=== PATIENT | male | born 1945 | race Caucasian/White ===

== ENCOUNTER 2023-05-22 18:29 | Emergency (ER) | payer MEDICARE, OTHER, SELFPAY ==
[2023-05-22 18:55] VITALS: BP 142/78; PULSE 78; O2SAT 99; BMI 22.5
[2023-05-22 19:14] VITALS: BP 128/55; PULSE 68; RESP 20; TEMP 36.7; O2SAT 96
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
== END 2023-05-22 20:49 | disposition skilled nursing facility (03) ==
PROVIDERS: Emergency Provider Internal Medicine; PCP Internal Medicine
DX: S61.412A Laceration without foreign body of left hand, initial encounter (principal); W20.8XXA Other cause of strike by thrown, projected or falling object, initial encounter; Y93.9 Activity, unspecified; Y92.129 Unspecified place in nursing home as the place of occurrence of the external cause; Y99.9 Unspecified external cause status
CPT/HCPCS: 99283

== ENCOUNTER 2023-05-24 12:21 | Emergency (ER) | payer MEDICARE, OTHER, SELFPAY ==
--- NOTE | ~2023-05-24 | XR_ITS ---
EXAMINATION: XR CHEST CLINICAL INFORMATION: Pain COMPARISON: None available. TECHNIQUE: Frontal view of the chest was obtained. FINDINGS: Chin obscures the apices. Heart and mediastinum within normal. Aortic calcifications identified. Patchy increased markings identified bilateral lung bhandari. No air bronchograms, vascular congestion. Minimal left costophrenic angle blunting. Bony structures are remarkable for degenerative change. Calcifications left axilla may be vascular. XR/XR chest 1V IMPRESSION: Patchy increased markings bilaterally. Bilateral multifocal pneumonias and tiny left effusion not excluded. Depending on the clinical scenario, CT may be indicated.
--- NOTE | ~2023-05-24 | CT_ITS ---
CT HEAD WITHOUT CONTRAST CLINICAL INFORMATION: Mental status changes. COMPARISON: Brain MRI 06/18/2022. TECHNIQUE: Contiguous axial imaging was performed from the skull base to vertex without intravenous administration of contrast. This CT examination was performed using dose optimization techniques as appropriate, variously including the following: *Automated exposure control *Adjustment of mA and/or kV according to patient size (this includes techniques or standardized protocols for targeted exams where dose is matched to indication/reason for exam; i.e. extremities or head) *Use of iterative reconstruction technique FINDINGS: Moderate to severe lateral and third ventriculomegaly with an associated narrowed callosal angle that can be correlated for clinical signs of normal pressure hydrocephalus. Left retromastoid craniotomy for vascular loop decompression of the left trigeminal nerve with a Santi pledget seen along the cisternal segment of the left trigeminal nerve. There is global cerebral volume loss, there is moderate chronic microangiopathy, and there is atherosclerotic calcification throughout the intracranial arterial vasculature. There is no intracranial hemorrhage, extra-axial surface collection, midline shift, or other herniation pattern. [place] to white matter differentiation is diffusely maintained without evidence of an evolved acute territorial infarct. The basilar cisterns are preserved. No significant soft tissue abnormality. No acute osseous abnormality. The paranasal sinuses and the mastoid air cells are well aerated. CT/CT head/brain wo IV con IMPRESSION: - Moderate to severe lateral and third ventriculomegaly with an associated narrowed callosal angle that can be correlated for clinical signs of normal pressure hydrocephalus. - There is global cerebral volume loss, there is moderate chronic microangiopathy, and there is atherosclerotic calcification throughout the intracranial arterial vasculature. - Left retromastoid craniotomy for vascular loop decompression of the left trigeminal nerve with a Santi pledget seen along the cisternal segment of the left trigeminal nerve.
[2023-05-24 12:50] VITALS: BP 125/59; PULSE 69; O2SAT 96
[2023-05-24 13:05] VITALS: BMI 19.7
[2023-05-24 13:11] VITALS: BP 125/52; PULSE 60; RESP 16; TEMP 36.7; O2SAT 96
--- NOTE | 2023-05-24 13:13 | ED_ITS ---
HPI - General Adult General Chief complaint: General Medical Stated complaint: AMS Time Seen by Provider: 05/24/23 13:03 Source: EMS Mode of arrival: EMS History of Present Illness HPI narrative: This is 77 years old male sent from a nursing facility for ?mental status changes patient denies any chest pain shortness of breath abdominal pain headache any complain. No reported fever no reported vomiting. Patient is coming from [facility] ([facility]) Onset (ago): day(s) (1) Radiation: non-radiation Severity: mild Pain Consistency: constant Relieving factors: none Related Data Allergies Allergy/AdvReac Type Severity Reaction Status Date / Time ceftriaxone [From Rocephin] AdvReac Unknown Verified 05/24/23 13:10 diphenhydramine AdvReac Unknown Verified 05/24/23 13:10 [From Benadryl] Review of Systems 2 Cardiovascular: Cardiovascular: Reports no additional cardiovascular complaints Gastrointestinal: Gastrointestinal: Reports no additional gastrointestinal complaints Neurologic: Reports system reviewed and no additional complaints, except as documented [facility] Past Medical History [facility] Narrative: History of high blood pressure, hypercholesterolemia Social History Social History Advance Directives: Yes Advance Directives Information Provided: Yes Advance Directives on File: No Physical Exam ED Vital Signs: Vital Signs - 24 hr 05/24/23 13:11 05/24/23 15:45 Temperature 98.0 F 98.0 F Pulse Rate 60 62 Respiratory Rate 16 18 Blood Pressure 125/52 L 147/61 H Pulse Oximetry 96 97 Oxygen Delivery Method Room Air Room Air BMI result Body Mass Index 19.7 Const General: cooperative HENFL Head: Yes normal to inspection General nose exam: Normal external nose present Face and sinus: Yes normal facial exam Neck Neck: Yes normal visual inspection Chest Chest palpation & inspection: normal inspection of the chest Resp Effort & Inspection: normal respiratory effort Auscultation: clear to auscultation bilaterally Cardio Jugular venous distension: no JVD Rate: regular rate Rhythm: regular rhythm GI Inspection: Yes normal to inspection General: Yes no CVA tenderness Back/Spine/Pelvis Back: no CVA tenderness Skin General skin exam: no rashes or lesions noted Lesions: no lesions Rashes: no rashes Neuro Other: He is oriented to place, he can tell me the month, he knows the president, Extrem General: Yes normal to inspection Course Reevaluation(s) Reevaluation #1: Patient remained hemodynamically stable and neurologically intact. Vital signs stable awake alert oriented to place and time. ct showed dilated ventricle likely chronic ? NPH Time: 16:00 Reevaluation #2: Case signed out to Dr Escobedo ,I paged neurologist waiting for call back to discuss ct (I am off shift now) Time: 16:10 Medical Decision Making Differential Diagnosis Differential Diagnoses: The differential diagnosis associated with the presentation includes ? CVa ? uti Admission/Observation Consideration of admission/observation: Escalation of care including admission/observation considered Lab Data MDM Lab Attestation statement: I reviewed the patient's lab results. 05/24/23 14:02 05/24/23 14:02 Labs: Lab Results 05/24/23 05/24/23 Range/Units 14:02 14:52 WBC 7.5 (4.8-10.8) X10*3/uL RBC 3.72 L (4.60-5.80) X10*6/uL Hgb 11.0 L (14.0-18.0) g/dl Hct 33.2 L (42.0-52.0) % MCV 89.2 (80.0-98.0) fL MCH 29.6 (27.0-33.0) pg MCHC 33.1 (31.0-36.0) g/dl RDW 14.8 (11.0-16.0) % Plt Count 195 (160-400) X10*3/uL MPV 9.4 (9.4-12.4) fL Immature Gran % (Auto) 0.3 (0.0-0.4) % Neut % (Auto) 77.8 H (45-73) % Lymph % (Auto) 13.9 L (20-40) % [place] % (Auto) 6.8 (2-11) % Eos % (Auto) 0.9 (0-4) % Baso % (Auto) 0.3 (0-2) % Lymph # (Auto) 1.0 L (1.2-4.9) X10*3/uL [place] # (Auto) 0.5 (0.1-1.2) X10*3/uL Eos # (Auto) 0.1 (0.0-0.4) X10*3/uL Baso # (Auto) 0.0 (0.0-0.2) X10*3/uL Abs Immat Gran (auto) 0.02 (0.00-0.03) X10*3/uL Absolute Neuts (auto) 5.8 (2.0-8.3) x10*3/uL Absolute Nucleated RBC 0.000 (0.0-0.012) X10*3/uL Nucleated RBC % (auto) 0.0 (0.0-0.2) /100WBC Sodium 140 (135-145) mmol/L Potassium 4.1 (3.3-5.1) mmol/L Chloride 106 (96-108) mmol/L Carbon Dioxide 25 (22-29) mmol/L Anion Gap 13 (12-20) BUN 22 H (9-16) mg/dL Creatinine 0.82 (0.5-1.4) mg/dL Estim Creat Clear Calc 62.4 Estimated GFR > 60 Random Glucose 92 (60-115) mg/dL Calcium 9.0 (8.4-10.2) mg/dL Total Bilirubin 0.5 (0.0-1.0) mg/dL AST 19 (5-37) U/L ALT 15 (0-40) U/L Alkaline Phosphatase 63 (39-117) U/L Troponin I High Sens < 2.7 (<3.5-35.0) ng/L Total Protein 6.8 (6.5-8.0) g/dL Albumin 3.6 (3.5-5.0) g/dL Urine Color Dark Yellow Urine Appearance Clear Urine pH 6.0 (5.0-9.0) Ur Specific [place] 1.025 (1.005-1.025) Urine Protein Trace (Neg-Trace) mg/dL Urine Glucose (UA) Negative (Negative) mg/dL Urine Ketones Trace (Negative) mg/dL Urine Blood Negative (Negative) Urine Nitrite Negative (Negative) Ur Leukocyte Esterase Negative (Negative) Urine RBC 0-2 (0-2) /HPF Urine WBC 0-5 (0-5) /HPF Ur Squamous Epith Cells 0-2 (0-2) /HPF Urine Bacteria None Seen (None Seen) Hyaline Casts 0-2 (0-2) /LPF Discharge Plan Discharge Clinical Impression: Altered mental status Patient Disposition: Still a Patient
[2023-05-24 14:05] LABS: MANUAL DIFF FLAG NO
[2023-05-24 14:07] LABS: Basophils Percent Auto 0.3 % (0-2); Eosinophils Absolute Auto 0.1 X10*3/uL (0.0-0.4); Eosinophils Percent Auto 0.9 % (0-4); Hematocrit 33.2 % (42.0-52.0); Imm Gran Abs Auto 0.02 X10*3/uL (0.00-0.03); Imm Gran Pct Auto 0.3 % (0.0-0.4); Lymphocytes Percent Auto 13.9 % (20-40); Mean Corpuscular HGB Conc 33.1 g/dl (31.0-36.0); Mean Corpuscular Hemoglobin 29.6 pg (27.0-33.0); Mean Corpuscular Volume 89.2 fL (80.0-98.0); Mean Platelet Volume 9.4 fL (9.4-12.4); Monocytes Absolute Auto 0.5 X10*3/uL (0.1-1.2); Monocytes Percent Auto 6.8 % (2-11); Neutrophils Absolute Auto 5.8 x10*3/uL (2.0-8.3); Neutrophils Percent Auto 77.8 % (45-73); Platelet Count 195 X10*3/uL (160-400); Red Blood Count 3.72 X10*6/uL (4.60-5.80); Red Cell Distribution Width 14.8 % (11.0-16.0); White Blood Count 7.5 X10*3/uL (4.8-10.8)
[2023-05-24 14:22] LABS: Alanine Aminotransferase 15 U/L (0-40); Albumin Level 3.6 g/dL (3.5-5.0); Alkaline Phosphatase 63 U/L (39-117); Anion Gap 13 (12-20); Aspartate Amino Transferase 19 U/L (5-37); Bilirubin Total 0.5 mg/dL (0.0-1.0); Blood Urea Nitrogen 22 mg/dL (9-16); Carbon Dioxide 25 mmol/L (22-29); Chloride 106 mmol/L (96-108); Creatinine Clr Calc Pharmacy 62.4; Estimated Glomerular Filt Rate > 60; Glucose Random 92 mg/dL (60-115); Potassium 4.1 mmol/L (3.3-5.1); Sodium 140 mmol/L (135-145); Total Protein 6.8 g/dL (6.5-8.0)
[2023-05-24 14:29] LABS: Troponin-I High Sensitivity < 2.7 ng/L (<3.5-35.0)
[2023-05-24 14:58] LABS: Appearance Urine Clear; Color Urine Dark Yellow; Glucose Urine UA Negative (Negative); Leukocyte Esterase Urine Negative (Negative); Nitrite Urine Negative (Negative); Specific Gravity - Urine 1.025 (1.005-1.025); Urine Blood Negative (Negative); Urine Ketones Trace mg/dL (Negative); Urine Protein Trace mg/dL (Neg-Trace)
[2023-05-24 15:00] LABS: Bacteria Urine None Seen (None Seen); Hyaline Casts Urine 0-2 /LPF (0-2); RBC Urine 0-2 /HPF (0-2); Squamous Epithelial Cell Urine 0-2 /HPF (0-2); WBC Urine 0-5 /HPF (0-5)
[2023-05-24 15:45] VITALS: BP 147/61; PULSE 62; RESP 18; TEMP 36.7; O2SAT 97
--- NOTE | 2023-05-24 17:10 | PHA.MEDREC ---
Pharmacy Consult ? Medication Reconciliation Pharmacy has completed the medication reconciliation. Patient came from [facility] with med list. Shayy Tse, WagnerD
== END 2023-05-24 20:00 | disposition home or self-care (01) ==
PROVIDERS: Emergency Medicine; Emergency Provider Emergency Medicine
DX: R41.82 Altered mental status, unspecified (principal); G93.89 Other specified disorders of brain
CPT/HCPCS: 36415; 70450; 71045; 80053; 81001; 84484; 85025; 99283; 99284

== ENCOUNTER 2023-06-10 16:51 | Inpatient (IN) | payer MEDICARE, OTHER, SELFPAY ==
[2023-06-10] VITALS (8 sets, daily range): BP systolic 108–141; BP diastolic 41–64; PULSE 69–100; RESP 15–22; TEMP 36.6–37.4; O2SAT 95–100; BMI 19.7
--- NOTE | 2023-06-10 | ECG_ITS ---
Test Reason : AMS Blood Pressure : / mmHG Vent. Rate : 093 BPM Atrial Rate : 093 BPM P-R Int : 144 ms QRS Dur : 084 ms QT Int : 380 ms P-R-T Axes : 070 -21 -03 degrees QTc Int : 472 ms Sinus rhythm with Premature supraventricular complexes Nonspecific ST and T wave abnormality Abnormal ECG No previous ECGs available Referred By: Generic ED Physician Electronically Signed By:Bubba Nobles
--- NOTE | ~2023-06-10 | CT_ITS ---
EXAMINATION: CT head/brain wo IV con CLINICAL INFORMATION: Reason for Exam altered mental status COMPARISON: CT head 05/24/2023 TECHNIQUE: Contiguous axial imaging was performed from the skull base to vertex without intravenous contrast. Sagittal and coronal reformatted images were obtained. This CT examination was performed using dose optimization techniques as appropriate, variously including the following: * Automated exposure control * Adjustment of mA and/or kV according to patient size (this includes techniques or standardized protocols for targeted exams where dose is matched to indication/reason for exam; i.e. extremities or head) Use of iterative reconstruction technique DLP: 640.97 mGy-cm mGy-cm FINDINGS: There is no evidence of acute intracranial hemorrhage. No mass-effect or ventricular shift is noted. No acute, territorial loss of tao-white differentiation. Redemonstrated ventriculomegaly which is out of proportion to sulcal prominence with crowding of the sulci at the cerebral vertex in a narrowed callosal angle.Periventricular and subcortical white matter hypodensity is nonspecific but likely represents chronic microvascular ischemic change. Intracranial atherosclerotic calcification is noted. Prior left retromastoid craniotomy with pledget along the cisternal left trigeminal nerve. Scattered ethmoid air cell mucosal thickening. Soft tissue in the external auditory canals, likely cerumen. The mastoid air cells are clear. CT/CT head/brain wo IV con IMPRESSION: No acute intracranial hemorrhage or territorial loss of tao-white differentiation. Redemonstrated ventriculomegaly with findings suggestive of normal pressure hydrocephalus. Clinical correlation is recommended. Moderate chronic microvascular ischemic change.
--- NOTE | ~2023-06-10 | XR_ITS ---
EXAMINATION: XR CHEST CLINICAL INFORMATION: Hypoxia and shortness of breath. AMS. COMPARISON: Chest 05/24/2023 TECHNIQUE: Frontal view of the chest was obtained. FINDINGS: The lungs are expanded with diffuse increased interstitial markings throughout both lungs likely chronic and similar to 05/24/2023. There is mild haziness in the left lung base likely chronic scarring or pleural thickening. Heart size and progress clarities appears normal. No gross bony abnormality. Flexed chin limits evaluation of superior mediastinum. XR/XR chest 1V IMPRESSION: Bilateral increased interstitial markings likely chronic. There is left basilar patchy opacity question chronic atelectasis with pleural thickening. Consolidation cannot be excluded.
[2023-06-10 17:07] LABS: Glucose, Whole Blood 120 mg/dL (60-115)
[2023-06-10 17:25] LABS: MANUAL DIFF FLAG NO
[2023-06-10 17:28] LABS: Appearance Urine Clear; Basophils Percent Auto 0.1 % (0-2); Color Urine Dark Yellow; Eosinophils Percent Auto 0.2 % (0-4); Glucose Urine UA Negative (Negative); Hematocrit 31.4 % (42.0-52.0); Hemoglobin 10.3 g/dl (14.0-18.0); Imm Gran Abs Auto 0.08 X10*3/uL (0.00-0.03); Imm Gran Pct Auto 0.7 % (0.0-0.4); Leukocyte Esterase Urine Trace (Negative); Lymphocytes Absolute Auto 0.8 X10*3/uL (1.2-4.9); Lymphocytes Percent Auto 6.7 % (20-40); Mean Corpuscular HGB Conc 32.8 g/dl (31.0-36.0); Mean Corpuscular Hemoglobin 29.9 pg (27.0-33.0); Mean Corpuscular Volume 91.3 fL (80.0-98.0); Mean Platelet Volume 10.5 fL (9.4-12.4); Monocytes Absolute Auto 0.5 X10*3/uL (0.1-1.2); Monocytes Percent Auto 4.2 % (2-11); Neutrophils Absolute Auto 10.3 x10*3/uL (2.0-8.3); Neutrophils Percent Auto 88.1 % (45-73); Nitrite Urine Negative (Negative); PH 5.5 (5.0-9.0); Platelet Count 195 X10*3/uL (160-400); Red Blood Count 3.44 X10*6/uL (4.60-5.80); Red Cell Distribution Width 15.4 % (11.0-16.0); Specific Gravity - Urine >= 1.030 (1.005-1.025); UMIC TRIGGER UACC YES; Urine Blood Negative (Negative); Urine Ketones Trace mg/dL (Negative); Urine Protein 30 (1+) mg/dL (Neg-Trace); White Blood Count 11.7 X10*3/uL (4.8-10.8)
[2023-06-10 17:43] LABS: Alanine Aminotransferase 34 U/L (0-40); Albumin Level 3.8 g/dL (3.5-5.0); Alkaline Phosphatase 64 U/L (39-117); Anion Gap 15 (12-20); Aspartate Amino Transferase 108 U/L (5-37); Bilirubin Total 0.5 mg/dL (0.0-1.0); Blood Urea Nitrogen 42 mg/dL (9-16); Calcium 10.5 mg/dL (8.4-10.2); Carbon Dioxide 29 mmol/L (22-29); Chloride 111 mmol/L (96-108); Creatinine Clr Calc Pharmacy 41.7; Estimated Glomerular Filt Rate > 60; Glucose Random 162 mg/dL (60-115); Potassium 4.2 mmol/L (3.3-5.1); Sodium 151 mmol/L (135-145); Total Protein 7.4 g/dL (6.5-8.0)
--- NOTE | 2023-06-10 17:45 | ED.GENADULT ---
HPI - General Adult General Chief complaint: Altered Mental Status Stated complaint: INCREASED AMS Time Seen by Provider: 06/10/23 16:53 Source: EMS and other Mode of arrival: EMS History of Present Illness HPI narrative: 77-year-old male with majority of history provided by the facility, EMS and prior documentation. This patient is brought in from [facility] after having been there for proximally 5 months for depression and initial concerns by the facility is that patient has had increased weakness and altered mental status that was further clarified by a Dr. Rico who stated that patient has had increasing inability to ambulate and seems to demonstrate signs of Parkinson's and unable to be seen by Neurology through [facility] until June 30. I do observed in the triage note that there were concerns regarding hallucination, patient is a [employer] from [facility] but the physician with whom I spoke does not feel patient is appropriate for return to [facility] Related Data Home Medications Medication Instructions Recorded Confirmed amlodipine 5 mg tablet 5 mg PO DAILY 05/24/23 06/10/23 clopidogrel 75 mg tablet 75 mg PO DAILY 05/24/23 06/10/23 cyanocobalamin (vitamin B-12) 500 1,000 mcg PO DAILY 05/24/23 06/10/23 mcg tablet ferrous gluconate 324 mg (38 mg 324 mg PO DAILY 05/24/23 06/10/23 iron) tablet multivitamin 1 tab PO DAILY 05/24/23 06/10/23 tamsulosin 0.4 mg capsule 0.4 mg PO BEDTIME 05/24/23 06/10/23 atorvastatin 80 mg tablet 80 mg PO DAILY 06/10/23 06/10/23 calcium carbonate 600 mg-vitamin 1 tab PO TID 06/10/23 06/10/23 D3 5 mcg (200 unit) tablet (Calcium 600 + D(3)) docusate sodium 100 mg tablet 100 mg PO BID PRN Constipation 06/10/23 06/10/23 lactulose 20 gram/30 mL oral 20 g PO BID 06/10/23 06/10/23 solution mirtazapine 7.5 mg tablet 7.5 mg PO BEDTIME 06/10/23 06/10/23 risperidone 0.5 mg tablet 0.5 mg PO BID 06/10/23 06/10/23 risperidone 1 mg tablet 1 mg PO BEDTIME 06/10/23 06/10/23 Allergies Allergy/AdvReac Type Severity Reaction Status Date / Time ceftriaxone [From Rocephin] AdvReac Unknown Verified 06/10/23 17:08 diphenhydramine AdvReac Unknown Verified 06/10/23 17:08 [From Benadryl] Review of Systems Review of Systems: Yes Unobtainable due to mental condition PMFSH Past Medical History Source: nursing notes reviewed Social History Social History Smoked in Last 30 Days: No Use of substances other than those prescribed or required for medical reasons: No Advance Directives: No Advance Directives Information Provided: Yes Physical Exam ED Vital Signs: Vital Signs - 24 hr 06/10/23 17:02 06/10/23 18:34 06/10/23 18:46 Temperature 97.8 F 98.4 F 99.3 F Pulse Rate 91 84 83 Respiratory Rate 16 18 22 H Blood Pressure 112/45 L 114/41 L 110/48 L Pulse Oximetry 95 96 95 Oxygen Delivery Method Room Air Room Air 06/10/23 20:02 Temperature Pulse Rate 79 Respiratory Rate 15 Blood Pressure Pulse Oximetry 98 Oxygen Delivery Method BMI result Body Mass Index 19.7 VITAL SIGNS: Reviewed. GENERAL: Cachectic, chronically ill, elderly in no acute distress. HEAD: Normocephalic/atraumatic EYES: PERRLA, EOMI EARS: Ext canals without abnormality NOSE: Nares patent bilateral OROPHARYNX: no oral lesions noted, posterior pharynx clear NECK: Supple, no adenopathy LUNGS: Normal breath sounds. No adventitious sounds or accessory muscle use. SpO2<95> CARDIOVASCULAR: Regular rate and rhythm without noted murmurs, no JVD or lower extremity edema. ABDOMEN: Soft, patient has adult diaper in place, discomfort elicited on palpation over lower pelvis/suprapubic area, non-distended with bowel sounds. MUSCULOSKELETAL: No tenderness, deformities, or effusions noted on gross inspection; bilateral anterior lower legs with significant bruising. EXTREMITIES: No cyanosis, clubbing or edema. SKIN: Inspection of the skin reveals no rashes, ulcerations, jaundice, pallor, or petechiae. NEUROLOGIC: Alert and oriented x 1. Strength and sensation to light touch were grossly intact x 4 but unable to ambulate. Medications Administered Discontinued Medications Generic Name Dose Route Start Last Admin Trade Name Freq PRN Reason Stop Dose Admin Fentanyl 25 mcg 06/10/23 19:46 06/10/23 20:01 Fentanyl Citrate/Pf 100 Mcg/2 Ml Vial IVPUSH 06/10/23 19:47 25 mcg ONCE ONE Administration Protocol Sodium Chloride 500 mls @ 999 mls/hr 06/10/23 18:00 06/10/23 19:15 Ns IV 06/10/23 18:30 Infused .Q31M ELSY Infusion Medical Decision Making Medical Decision Making MDM Narrative: 77-year-old male with history and clinical presentation of chronic normal pressure hydrocephalus on initial visit on 05/24/2023. At the time this was discussed with Neurology, Dr. Figueroa, who recommended that patient could be followed up in the outpatient setting. On discussion with the facility staff as well as the physician with whom I discussed the patient's case, this has not occurred, nor has patient been to [facility] for further evaluation or workup. It is unclear whether or not goals of care or plans for care for this patient have been discussed with his . I reviewed all investigations and there is a subtle leukocytosis without thrombocytopenia and a stable normocytic anemia. Chemistry indices do not demonstrate an ELI although there is noted increase in BUN suggesting a component of dehydration, patient also noted to have an elevated sodium as well as chloride. Urinalysis negative for UTI but again elevated specific gravity mildly suggestive of a component of dehydration. Viral testing negative for influenza/RSV/COVID. 1820: I have been informed by Dr. Rico who called here on behalf [facility] stating that he suspects that the patient is having parkinsonian symptoms, they have been unable to get the patient into a neurologist through the [facility] system, states that the who is the primary decision maker is aware that he can no longer walk and has not been eating or drinking. Dr. Rico wishes for the patient to be seen by Neurology and worked up further. Dr. Rico also states that this patient is not appropriate for the facility at this time. 1944: Nursing was able to have a lengthy discussion with the over the phone who states that patient is not been himself since he has been at [facility] at the beginning April. The states he has no psychiatric history but he is been declining since February. is aware that he is not eating or drinking and she states that it is because he does not think he can pay for the food. 2010: I discussed with the inpatient hospitalist who accepts admission. CT head is pending. Differential Diagnosis Differential Diagnoses: The differential diagnosis associated with the presentation includes Please see the discussion above Admission/Observation Consideration of admission/observation: Escalation of care including admission/observation considered Please see the discussion above Consult Healthcare Provider Management of the patient was discussed with: Hospitalist Please see the discussion above Lab Data MDM Lab Attestation statement: I reviewed the patient's lab results. Please see the discussion above 06/10/23 17:20 06/10/23 17:20 Labs: Lab Results 06/10/23 06/10/23 06/10/23 Range/Units 17:01 17:13 17:20 WBC 11.7 H (4.8-10.8) X10*3/uL RBC 3.44 L (4.60-5.80) X10*6/uL Hgb 10.3 L (14.0-18.0) g/dl Hct 31.4 L (42.0-52.0) % MCV 91.3 (80.0-98.0) fL MCH 29.9 (27.0-33.0) pg MCHC 32.8 (31.0-36.0) g/dl RDW 15.4 (11.0-16.0) % Plt Count 195 (160-400) X10*3/uL MPV 10.5 (9.4-12.4) fL Immature Gran % (Auto) 0.7 H (0.0-0.4) % Neut % (Auto) 88.1 H (45-73) % Lymph % (Auto) 6.7 L (20-40) % [place] % (Auto) 4.2 (2-11) % Eos % (Auto) 0.2 (0-4) % Baso % (Auto) 0.1 (0-2) % Lymph # (Auto) 0.8 L (1.2-4.9) X10*3/uL [place] # (Auto) 0.5 (0.1-1.2) X10*3/uL Eos # (Auto) 0.0 (0.0-0.4) X10*3/uL Baso # (Auto) 0.0 (0.0-0.2) X10*3/uL Abs Immat Gran (auto) 0.08 H (0.00-0.03) X10*3/uL Absolute Neuts (auto) 10.3 H (2.0-8.3) x10*3/uL Absolute Nucleated RBC 0.000 (0.0-0.012) X10*3/uL Nucleated RBC % (auto) 0.0 (0.0-0.2) /100WBC Sodium 151 H (135-145) mmol/L Potassium 4.2 (3.3-5.1) mmol/L Chloride 111 H (96-108) mmol/L Carbon Dioxide 29 (22-29) mmol/L Anion Gap 15 (12-20) BUN 42 H (9-16) mg/dL Creatinine 1.16 (0.5-1.4) mg/dL Estim Creat Clear Calc 41.7 Estimated GFR > 60 POC Glucose 120 H (60-115) mg/dL Random Glucose 162 H (60-115) mg/dL Calcium 10.5 H D (8.4-10.2) mg/dL Total Bilirubin 0.5 (0.0-1.0) mg/dL AST 108 H (5-37) U/L ALT 34 (0-40) U/L Alkaline Phosphatase 64 (39-117) U/L Total Protein 7.4 (6.5-8.0) g/dL Albumin 3.8 (3.5-5.0) g/dL Urine Color Dark Yellow Urine Appearance Clear Urine pH 5.5 (5.0-9.0) Ur Specific [place] >= 1.030 H (1.005-1.025) Urine Protein 30 (1+) H (Neg-Trace) mg/dL Urine Glucose (UA) Negative (Negative) mg/dL Urine Ketones Trace (Negative) mg/dL Urine Blood Negative (Negative) Urine Nitrite Negative (Negative) Ur Leukocyte Esterase Trace H (Negative) Urine RBC 0-2 (0-2) /HPF Urine WBC 0-5 (0-5) /HPF Ur Squamous Epith Cells 0-2 (0-2) /HPF Urine Bacteria None Seen (None Seen) Hyaline Casts 0-2 (0-2) /LPF Influenza Type A (PCR) NEGATIVE (Negative) Influenza Type B (PCR) NEGATIVE (Negative) RSV RNA Qual (PCR) NEGATIVE (Negative) SARS-CoV-2 RNA (RT-PCR) NEGATIVE (Negative) Independent Interpretation I performed an independent interpretation of an: EKG Interpretation: Sinus rhythm, HR-93, no STEMI, MT/QRS/QTC is within normal limits. External Record Review External record reviewed: Outpatient record, Prior outpatient labs and Prior outpatient radiology Critical Care Time Critical Care Time Critical Care Time: Yes Total Critical Care Time: 60 Attestation: I personally attest to this time spent taking care of the patient. Discharge Plan Discharge Clinical Impression: Altered mental status, Hypernatremia, Dehydration Patient Disposition: Admitted As Inpatient
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
[2023-06-10 17:55] LABS: Bacteria Urine None Seen (None Seen); Hyaline Casts Urine 0-2 /LPF (0-2); RBC Urine 0-2 /HPF (0-2); Squamous Epithelial Cell Urine 0-2 /HPF (0-2); WBC Urine 0-5 /HPF (0-5)
[2023-06-10 18:04] LABS: Influenza A PCR NEGATIVE (Negative); Influenza B PCR NEGATIVE (Negative); Resp Syncy Virus RNA Qual PCR NEGATIVE (Negative); SARS COV2 PCR INHOUSE NEGATIVE (Negative)
[2023-06-10] MEDS: 0.9 % Sodium Chloride 500 ML 999 ML IV (18:14)
--- NOTE | 2023-06-10 19:30 | PHA.MEDREC ---
Pharmacy Consult ? Medication Reconciliation Pharmacy has completed the medication reconciliation. Patient from [facility] with med list. utilized claim history and med list to complete med rec. Wagner GramajoD
[2023-06-10] MEDS: fentaNYL citrate/PF 100 MCG/2 ML VIAL 25 MCG IVPUSH (20:01)
[2023-06-10 21:28] LABS: Anion Gap 11 (12-20); Blood Urea Nitrogen 38 mg/dL (9-16); Calcium 9.1 mg/dL (8.4-10.2); Carbon Dioxide 29 mmol/L (22-29); Chloride 114 mmol/L (96-108); Creatinine Clr Calc Pharmacy 55.6; Estimated Glomerular Filt Rate > 60; Glucose Random 96 mg/dL (60-115); Potassium 3.5 mmol/L (3.3-5.1); Sodium 150 mmol/L (135-145)
--- NOTE | 2023-06-10 21:28 | P.HPHOSP_ITS ---
History of Present Illness Date of Service: 06/10/23 Attending physician on admission: Rani Hooker Chief Complaint: ftt 77 year old male with history of cva, copd who is a former smoker, pvd on plavix, osteoporosis, hld, pulmonary sarcoidosis, trigeminal neuralgia, zion,htn, MDD presents to the ED earlier today from [place] where is he has been residing since 04/24 due to depression/si but over the last few weeks has not been ambulating, eating, or drinking. Pt is unable to provide meaningful history and has poor insight and judgement. The patient states he cannot eat or drink nor can he be admitted to the hospital due to not having insurance or money. Per Luz mendoza, who is at bedside, the patient has been reporting this at the facility as well. He was ambulating on admission to [place] and is now a 3 person assist noted to have shuffling gait. The patient has been noted to have episodes of dysphagia and there has been concerns about pt aspirating per aide. There have been no fevers or cough reported. There is no health care proxy documented on final, but ed provider did discuss case with patient's , Antonia, who agrees with admission and reports patient is a full code. Ed provider also discussed case with [place] psychiatry, Dr. Rico who is concerned for rapid cognitive decline and Parkinson's and recommended transfer to our facility on [address] and also does not feel the patient is appropriate to return to [place]. On arrival, VSS. There is a mild leukocytosis 11.7, normocytic anemia with h/h 10.3/31.4%. Initial creat 1.16, (baseline 0.82), BUN 42. Na 151, chloride 111, lytes otherwise normal. Given 1L IV NS with improvement in creat to 0.87, sodium 150, cl 114. UA with elevated SG, otherwise unremarkable. Negative covid, flu, rsv. Head CT shows redemonstrated ventriculomegaly suggestive of NPH but negative for acute intracranial abnormality. Pt will be admitted for further management and evaluation of FTT in adult. Review of Systems 2 Review of Systems: Yes Unobtainable due to mental status [facility] Medical History Pulmonary sarcoidosis CVA (cerebral vascular accident) ZION (iron deficiency anemia) Osteoporosis Trigeminal neuralgia Former smoker COPD (chronic obstructive pulmonary disease) PVD (peripheral vascular disease) HLD (hyperlipidemia) HTN (hypertension) Social History Smoked in Last 30 Days: No Use of substances other than those prescribed or required for medical reasons: No Advance Directives: No Advance Directives Information Provided: Yes Meds Allergies Allergy/AdvReac Type Severity Reaction Status Date / Time ceftriaxone [From Rocephin] AdvReac Unknown Verified 06/10/23 17:08 diphenhydramine AdvReac Unknown Verified 06/10/23 17:08 [From Benadryl] Active Medications: Current Medications Acetaminophen (Acetaminophen 325 Mg Tablet) 650 mg PO Q6H PRN PRN Reason: Pain, Mild (Pain Scale 1-3) Amlodipine Besylate (Amlodipine Besylate 5 Mg Tablet) 5 mg PO DAILY [facility]; Protocol Atorvastatin Calcium (Atorvastatin Calcium 80 Mg Tablet) 80 mg PO DAILY [facility] Clopidogrel Bisulfate (Clopidogrel Bisulfate 75 Mg Tablet) 75 mg PO DAILY [facility] Cyanocobalamin (Cyanocobalamin (Vitamin B-12) 1,000 Mcg Tablet) 1,000 mcg PO DAILY [facility] Docusate Sodium (Docusate Sodium 100 Mg Capsule) 100 mg PO BID PRN PRN Reason: Constipation Heparin Sodium (Porcine) (Heparin Sodium,Porcine 5,000 Unit/Ml Vial) 5,000 unit SUBCUT Q12H [facility] Lactulose (Lactulose 20 Gm/30 Ml Solution) 20 gm PO BID [facility] Mirtazapine (Mirtazapine 7.5 Mg Tablet) 7.5 mg PO BEDTIME [facility] Multivitamins/Vitamin C (Multivitamin Tablet) 1 tab PO DAILY [facility] Non-Formulary Medication (Calcium Carbonate-Vitamin D3 [Calcium 600 + D(3)]) 1 tab PO TID [facility] Non-Formulary Medication (Ferrous Gluconate) 324 mg PO DAILY [facility] Ondansetron HCl (Ondansetron Hcl 4 Mg/2 Ml Vial) 4 mg IVPUSH Q8H PRN PRN Reason: Nausea and Vomiting Risperidone (Risperidone 0.5 Mg Tablet) 0.5 mg PO BID [facility] Risperidone (Risperidone 1 Mg Tablet) 1 mg PO BEDTIME [facility] Senna (Sennosides 8.6 Mg Tablet) 17.2 mg PO BEDTIME PRN PRN Reason: Constipation Sodium Chloride (0.9 % Sodium Chloride Flush 3 Ml Syringe) 3 ml IVFLUSH QSHIFT [facility] Tamsulosin HCl (Tamsulosin Hcl 0.4 Mg Capsule) 0.4 mg PO BEDTIME [facility] Home Medications Medication Instructions Recorded Confirmed Last Taken Type amlodipine 5 mg tablet 5 mg PO DAILY 05/24/23 06/10/23 05/24/23 History clopidogrel 75 mg tablet 75 mg PO DAILY 05/24/23 06/10/23 05/24/23 History cyanocobalamin (vitamin B-12) 500 1,000 mcg PO DAILY 05/24/23 06/10/23 05/24/23 History mcg tablet ferrous gluconate 324 mg (38 mg 324 mg PO DAILY 05/24/23 06/10/23 05/24/23 History iron) tablet multivitamin 1 tab PO DAILY 05/24/23 06/10/23 05/24/23 History tamsulosin 0.4 mg capsule 0.4 mg PO BEDTIME 05/24/23 06/10/23 05/23/23 History atorvastatin 80 mg tablet 80 mg PO DAILY 06/10/23 06/10/23 Unknown History calcium carbonate 600 mg-vitamin 1 tab PO TID 06/10/23 06/10/23 Unknown History D3 5 mcg (200 unit) tablet (Calcium 600 + D(3)) docusate sodium 100 mg tablet 100 mg PO BID PRN Constipation 06/10/23 06/10/23 Unknown History lactulose 20 gram/30 mL oral 20 g PO BID 06/10/23 06/10/23 Unknown History solution mirtazapine 7.5 mg tablet 7.5 mg PO BEDTIME 06/10/23 06/10/23 Unknown History risperidone 0.5 mg tablet 0.5 mg PO BID 06/10/23 06/10/23 Unknown History risperidone 1 mg tablet 1 mg PO BEDTIME 06/10/23 06/10/23 Unknown History Physical Exam 2 Vital Signs and Narrative: Vital Signs: Last Vital Signs Temp 99.3 F 06/10/23 18:46 Pulse 79 06/10/23 20:02 Resp 15 06/10/23 20:02 BP 110/48 L 06/10/23 18:46 Pulse Ox 98 06/10/23 20:02 O2 Del Method Room Air 06/10/23 18:46 BMI result Body Mass Index 19.7 Constitutional - Awake and Alert, No apparent distress Eyes - PERRLA, EOMI Cardiovascular - S1S2, RRR, No edema Respiratory - Normal lung expansion, Normal respiratory effort, No respiratory distress, CTA bilaterally Gastrointestinal - NT / ND; +BS; No rebound or guarding Extremities - no calf tenderness bilaterally, no swelling Skin - Warm/Dry Neurological - Alert & oriented to self only. Unable to participate in neuro exam. Continues uttering that he cannot stay in the hospital or eat/drink due to insurance issues/lack of funds. Resting tremor noted. Shuffling gait. No pill rolling/rigidity Psychological - Appropriate affect Results Labs 06/10/23 17:20 06/10/23 21:12 Labs: Laboratory Results - last 24 hr 06/10/23 06/10/23 06/10/23 17:01 17:13 17:20 MCV 91.3 MCH 29.9 MCHC 32.8 RDW 15.4 Plt Count 195 MPV 10.5 Immature Gran % (Auto) 0.7 H Neut % (Auto) 88.1 H Lymph % (Auto) 6.7 L [place] % (Auto) 4.2 Eos % (Auto) 0.2 Baso % (Auto) 0.1 Lymph # (Auto) 0.8 L [place] # (Auto) 0.5 Eos # (Auto) 0.0 Baso # (Auto) 0.0 Abs Immat Gran (auto) 0.08 H Absolute Neuts (auto) 10.3 H Absolute Nucleated RBC 0.000 Nucleated RBC % (auto) 0.0 Anion Gap 15 Estim Creat Clear Calc 41.7 Estimated GFR > 60 POC Glucose 120 H Random Glucose 162 H Calcium 10.5 H D Total Bilirubin 0.5 AST 108 H ALT 34 Alkaline Phosphatase 64 Total Protein 7.4 Albumin 3.8 Urine Color Dark Yellow Urine Appearance Clear Urine pH 5.5 Ur Specific [place] >= 1.030 H Urine Protein 30 (1+) H Urine Glucose (UA) Negative Urine Ketones Trace Urine Blood Negative Urine Nitrite Negative Ur Leukocyte Esterase Trace H Urine RBC 0-2 Urine WBC 0-5 Ur Squamous Epith Cells 0-2 Urine Bacteria None Seen Hyaline Casts 0-2 Influenza Type A (PCR) NEGATIVE Influenza Type B (PCR) NEGATIVE RSV RNA Qual (PCR) NEGATIVE SARS-CoV-2 RNA (RT-PCR) NEGATIVE Imaging Radiologist's Impressions: Impressions Head CT 06/10/23 20:37 IMPRESSION: No acute intracranial hemorrhage or territorial loss of tao-white differentiation. Redemonstrated ventriculomegaly with findings suggestive of normal pressure hydrocephalus. Clinical correlation is recommended. Moderate chronic microvascular ischemic change. Assessment and Plan (1) Dehydration: Status: Acute (2) Hypernatremia: Status: Acute (3) Failure to thrive in adult: Status: Acute Plan 77 year old male with history of cva, copd who is a former smoker, pvd on plavix, osteoporosis, hld, pulmonary sarcoidosis, trigeminal neuralgia, zion,htn, MDD admitted for further management of FTT in adult. #Failure to thrive in adult -suspect underlying parkinson's disease as noted by shuffling gait, dysphagia, rapid cognitive decline, resting tremor -Head CT shows redemonstration of possible NPH -neuro consult -pt/electromechanical equipment assembler eval -consider psychiatry consult, though per [place] Psychiatrist Dr. Rico, pt is not appropriate for return to psychiatric facility -per , pt is full code and wants treatment -plan as below #Dysphagia- reproted by facility staff -likely r/t parkinson's disease -electromechanical equipment assembler evaluation, keep npo for now #Acute hyperosmolar hypernatremia -given 1L IV NS in ED. Na 151-->150 -Initiate D5w @100ml/hr -follow lytes #Acute kidney injury- resolved on admission -initial creat 1.15, baseline 0.82. Given 1L NS with improvement to 0.87 -avoid nephrotoxins -continue IVF above -follow lytes #NPH -ventriculomegaly redemonstrated on head ct -neuro eval #HTN -continue amlodipine #PVD -continue plavix, statin #copd -no exacerbation -albuterol prn #Mood disorder -pt on 1:1 at facility due to instability/fall risk, not si -continue remeron, risperidone #BPH -continue tamsulosin dvt prophylaxis- heparin full code per NO HCP on file, but per patient's , Antonia, she is HCP pt requires inpt stay at least 2 midnights due to failure to thrive with kishor and hypernatremia due to dehydration requiring ivf ,monitoring or renal function, lytes, and expert consultation. pt will also likely require further advanced care planning pending clinical course Quality Stroke Does the patient have a stroke diagnosis?: No VTE Prior VTE?: No VTE Risk Level:: Medical - moderate - high VTE Device Contraindication: Treatment Not Indicated VTE Drug Contraindication: N/A - Med Ordered
[2023-06-10] MEDS: Dextrose 5 % 1,000 ML 100 ML IVCONT (22:54)
[2023-06-10] MEDS: Heparin Sodium,Porcine 5,000 UNIT/ML VIAL 5000 UNIT SUBCUT (23:25)
[2023-06-11 06:23] LABS: MANUAL DIFF FLAG NO
[2023-06-11 06:39] LABS: Anion Gap 14 (12-20); Blood Urea Nitrogen 29 mg/dL (9-16); Calcium 9.1 mg/dL (8.4-10.2); Carbon Dioxide 25 mmol/L (22-29); Chloride 110 mmol/L (96-108); Creatinine Clr Calc Pharmacy 58.9; Estimated Glomerular Filt Rate > 60; Glucose Random 110 mg/dL (60-115); Sodium 146 mmol/L (135-145)
[2023-06-11 06:54] LABS: Basophils Percent Auto 0.1 % (0-2); Eosinophils Absolute Auto 0.1 X10*3/uL (0.0-0.4); Eosinophils Percent Auto 0.7 % (0-4); Hematocrit 29.2 % (42.0-52.0); Hemoglobin 9.4 g/dl (14.0-18.0); Imm Gran Abs Auto 0.05 X10*3/uL (0.00-0.03); Imm Gran Pct Auto 0.5 % (0.0-0.4); Lymphocytes Absolute Auto 1.3 X10*3/uL (1.2-4.9); Lymphocytes Percent Auto 12.9 % (20-40); Mean Corpuscular HGB Conc 32.2 g/dl (31.0-36.0); Mean Corpuscular Hemoglobin 29.6 pg (27.0-33.0); Mean Corpuscular Volume 91.8 fL (80.0-98.0); Mean Platelet Volume 11.3 fL (9.4-12.4); Monocytes Absolute Auto 0.7 X10*3/uL (0.1-1.2); Monocytes Percent Auto 6.8 % (2-11); Neutrophils Absolute Auto 7.8 x10*3/uL (2.0-8.3); Platelet Count 194 X10*3/uL (160-400); Red Blood Count 3.18 X10*6/uL (4.60-5.80); Red Cell Distribution Width 15.2 % (11.0-16.0); White Blood Count 9.9 X10*3/uL (4.8-10.8)
[2023-06-11 07:03] LABS: Glucose, Whole Blood 107 mg/dL (60-115)
[2023-06-11] MEDS: Dextrose 5 % 1,000 ML 100 ML IVCONT ×2 (08:48→17:36)
--- NOTE | 2023-06-11 08:51 | MHC.CM.PN ---
Patient is here with FTT & AMS; CM spoke with /HCP/Ninfa @ [phone] addressed IMM with her (original will be mailed certified letter to Ninfa and a copy will be placed on the chart). BRYCE has asked Ninfa to provide a copy of the HCP and she is agreeable to do that today.Patient comes to us from [facility]) under a [address]; dc plan is TBD at this point r/t Patient appearing to need more PT than [facility] can provide(per /HCP). CM has initiated and will follow for dc planning. PCP is Dr. Brad Russell.Per , Patient arrived at [place] using a cane and is now documented to be a 3 assist.
--- NOTE | 2023-06-11 09:11 | PC.NURSE ---
Patient remains NPO with speech eval in place. Message sent to business control manager speech therapist to see when speech will eval patient
[2023-06-11] MEDS: Heparin Sodium,Porcine 5,000 UNIT/ML VIAL 5000 UNIT SUBCUT (09:43)
--- NOTE | 2023-06-11 09:46 | PC.NURSE ---
Alert and responsive, denies pain or discomfort. Paranoid stating that he knows someone is going to kill him. Po meds held until seen by speech
[2023-06-11] MEDS: amLODIPine Besylate 5 MG TABLET PO (10:19)
[2023-06-11] MEDS: risperiDONE 0.5 MG TABLET PO (10:20)
--- NOTE | 2023-06-11 10:20 | PC.NURSE ---
Seen by speech with recommendation for meds crushed. Patient adamantly refusing medications despite numerous attempts. After much encouragement patient in agreement to take amlodipine and risperidone
--- NOTE | 2023-06-11 11:06 | PC.NURSE ---
Seen by therapy, therapy recommending to not get patient oob at this time. Patient asissted with urinal / bed gutiérrez. Turned and repositioned as tolerated
[2023-06-11 11:32] LABS: Glucose, Whole Blood 104 mg/dL (60-115)
--- NOTE | 2023-06-11 12:08 | MHC.CM.PN ---
PT is recommending STR; CM will follow.
--- NOTE | 2023-06-11 12:36 | P.PNIM_ITS ---
Subjective Subjective Date of Service: 06/11/23 Interval History: Follow up on adul failure to thrive, dehydration and Acute kidney insuficiency Overall clinically is better, dehdyration is improved, sodium level is better and creatine is better Physical Exam 2 Vital Signs: Vital Signs: Last Vital Signs Temp 99.2 F 06/10/23 23:38 Pulse 75 06/10/23 23:38 Resp 18 06/10/23 23:38 BP 141/64 H 06/10/23 23:38 Pulse Ox 95 06/10/23 23:38 O2 Del Method Room Air 06/10/23 23:38 BMI result Body Mass Index 19.7 Objective Data Active Medications Acetaminophen (Acetaminophen 325 Mg Tablet) 650 mg PO Q6H PRN PRN Reason: Pain, Mild (Pain Scale 1-3) Amlodipine Besylate (Amlodipine Besylate 5 Mg Tablet) 5 mg PO DAILY [facility]; Protocol Last Admin: 06/11/23 10:19 Dose: 5 mg Documented By: DALTON Atorvastatin Calcium (Atorvastatin Calcium 80 Mg Tablet) 80 mg PO DAILY [facility] Last Admin: 06/11/23 10:19 Dose: Not Given Documented By: DALTON Non-Admin Reason: Patient Refused Calcium Carbonate/Cholecalciferol (Calcium + Vitamin D 250 Mg Tablet) 500 mg PO TID [facility] Last Admin: 06/11/23 10:19 Dose: Not Given Documented By: DALTON Non-Admin Reason: Patient Refused Clopidogrel Bisulfate (Clopidogrel Bisulfate 75 Mg Tablet) 75 mg PO DAILY [facility] Last Admin: 06/11/23 10:19 Dose: Not Given Documented By: DALTON Non-Admin Reason: Patient Refused Cyanocobalamin (Cyanocobalamin (Vitamin B-12) 1,000 Mcg Tablet) 1,000 mcg PO DAILY [facility] Last Admin: 06/11/23 10:19 Dose: Not Given Documented By: DALTON Non-Admin Reason: Patient Refused Docusate Sodium (Docusate Sodium 100 Mg Capsule) 100 mg PO BID PRN PRN Reason: Constipation Ferrous Sulfate (Ferrous Sulfate 324 Mg Tablet.Dr) 324 mg PO DAILY [facility] Last Admin: 06/11/23 10:19 Dose: Not Given Documented By: DALTON Non-Admin Reason: Patient Refused Heparin Sodium (Porcine) (Heparin Sodium,Porcine 5,000 Unit/Ml Vial) 5,000 unit SUBCUT Q12H [facility] Last Admin: 06/11/23 09:43 Dose: 5,000 unit Documented By: DALTON Dextrose (D5w) 1,000 mls @ 100 mls/hr IVCONT .Q10H [facility] Last Admin: 06/11/23 08:48 Dose: 100 mls/hr Documented By: DALTON Lactulose (Lactulose 20 Gm/30 Ml Solution) 20 gm PO BID [facility] Last Admin: 06/11/23 10:20 Dose: Not Given Documented By: DALTON Non-Admin Reason: Patient Refused Mirtazapine (Mirtazapine 7.5 Mg Tablet) 7.5 mg PO BEDTIME [facility] Multivitamins/Vitamin C (Multivitamin Tablet) 1 tab PO DAILY [facility] Last Admin: 06/11/23 10:20 Dose: Not Given Documented By: DALTON Non-Admin Reason: Patient Refused Ondansetron HCl (Ondansetron Hcl 4 Mg/2 Ml Vial) 4 mg IVPUSH Q8H PRN PRN Reason: Nausea and Vomiting Risperidone (Risperidone 0.5 Mg Tablet) 0.5 mg PO BID [facility] Last Admin: 06/11/23 10:20 Dose: 0.5 mg Documented By: DALTON Risperidone (Risperidone 1 Mg Tablet) 1 mg PO BEDTIME [facility] Senna (Sennosides 8.6 Mg Tablet) 17.2 mg PO BEDTIME PRN PRN Reason: Constipation Sodium Chloride (0.9 % Sodium Chloride Flush 3 Ml Syringe) 3 ml IVFLUSH QSHIFT [facility] Last Admin: 06/11/23 08:48 Dose: Not Given Documented By: DALTON Non-Admin Reason: IV Running Tamsulosin HCl (Tamsulosin Hcl 0.4 Mg Capsule) 0.4 mg PO BEDTIME [facility] Labs 06/11/23 06:12 06/11/23 06:12 Labs: Laboratory Results - last 24 hr 06/10/23 06/10/23 06/10/23 17:01 17:13 17:20 MCV 91.3 MCH 29.9 MCHC 32.8 RDW 15.4 Plt Count 195 MPV 10.5 Immature Gran % (Auto) 0.7 H Neut % (Auto) 88.1 H Lymph % (Auto) 6.7 L [place] % (Auto) 4.2 Eos % (Auto) 0.2 Baso % (Auto) 0.1 Lymph # (Auto) 0.8 L [place] # (Auto) 0.5 Eos # (Auto) 0.0 Baso # (Auto) 0.0 Abs Immat Gran (auto) 0.08 H Absolute Neuts (auto) 10.3 H Absolute Nucleated RBC 0.000 Nucleated RBC % (auto) 0.0 Anion Gap 15 Estim Creat Clear Calc 41.7 Estimated GFR > 60 POC Glucose 120 H Random Glucose 162 H Calcium 10.5 H D Total Bilirubin 0.5 AST 108 H ALT 34 Alkaline Phosphatase 64 Total Protein 7.4 Albumin 3.8 Urine Color Dark Yellow Urine Appearance Clear Urine pH 5.5 Ur Specific [place] >= 1.030 H Urine Protein 30 (1+) H Urine Glucose (UA) Negative Urine Ketones Trace Urine Blood Negative Urine Nitrite Negative Ur Leukocyte Esterase Trace H Urine RBC 0-2 Urine WBC 0-5 Ur Squamous Epith Cells 0-2 Urine Bacteria None Seen Hyaline Casts 0-2 Influenza Type A (PCR) NEGATIVE Influenza Type B (PCR) NEGATIVE RSV RNA Qual (PCR) NEGATIVE SARS-CoV-2 RNA (RT-PCR) NEGATIVE 06/10/23 06/11/23 06/11/23 21:12 06:12 06:58 MCV 91.8 MCH 29.6 MCHC 32.2 RDW 15.2 Plt Count 194 MPV 11.3 Immature Gran % (Auto) 0.5 H Neut % (Auto) 79.0 H Lymph % (Auto) 12.9 L [place] % (Auto) 6.8 Eos % (Auto) 0.7 Baso % (Auto) 0.1 Lymph # (Auto) 1.3 [place] # (Auto) 0.7 Eos # (Auto) 0.1 Baso # (Auto) 0.0 Abs Immat Gran (auto) 0.05 H Absolute Neuts (auto) 7.8 Absolute Nucleated RBC 0.000 Nucleated RBC % (auto) 0.0 Anion Gap 11 L 14 Estim Creat Clear Calc 55.6 58.9 Estimated GFR > 60 > 60 POC Glucose 107 Random Glucose 96 110 Calcium 9.1 D 9.1 Total Bilirubin AST ALT Alkaline Phosphatase Total Protein Albumin Urine Color Urine Appearance Urine pH Ur Specific [place] Urine Protein Urine Glucose (UA) Urine Ketones Urine Blood Urine Nitrite Ur Leukocyte Esterase Urine RBC Urine WBC Ur Squamous Epith Cells Urine Bacteria Hyaline Casts Influenza Type A (PCR) Influenza Type B (PCR) RSV RNA Qual (PCR) SARS-CoV-2 RNA (RT-PCR) 06/11/23 11:27 MCV MCH MCHC RDW Plt Count MPV Immature Gran % (Auto) Neut % (Auto) Lymph % (Auto) [place] % (Auto) Eos % (Auto) Baso % (Auto) Lymph # (Auto) [place] # (Auto) Eos # (Auto) Baso # (Auto) Abs Immat Gran (auto) Absolute Neuts (auto) Absolute Nucleated RBC Nucleated RBC % (auto) Anion Gap Estim Creat Clear Calc Estimated GFR POC Glucose 104 Random Glucose Calcium Total Bilirubin AST ALT Alkaline Phosphatase Total Protein Albumin Urine Color Urine Appearance Urine pH Ur Specific [place] Urine Protein Urine Glucose (UA) Urine Ketones Urine Blood Urine Nitrite Ur Leukocyte Esterase Urine RBC Urine WBC Ur Squamous Epith Cells Urine Bacteria Hyaline Casts Influenza Type A (PCR) Influenza Type B (PCR) RSV RNA Qual (PCR) SARS-CoV-2 RNA (RT-PCR) Assessment and Plan (1) Failure to thrive in adult: Status: Acute (2) Dehydration: Status: Acute (3) Hypernatremia: Status: Acute (4) Altered mental status: Status: Acute Plan 77 year old male with history of cva, copd who is a former smoker, pvd on plavix, osteoporosis, hld, pulmonary sarcoidosis, trigeminal neuralgia, zion,htn, MDD admitted for further management of FTT in adult. #Failure to thrive in adult -suspect underlying parkinson's disease as noted by shuffling gait, dysphagia, rapid cognitive decline, resting tremor -Head CT shows redemonstration of possible NPH -neuro consult -pt/credit risk manager eval -consider psychiatry consult, though per [place] Psychiatrist Dr. Rico, pt is not appropriate for return to psychiatric facility -According to , pt is full code and wants treatment -plan as below #Dysphagia- reproted by facility staff -likely r/t parkinson's disease -credit risk manager evaluation, recommends Puree + Honey thick #Acute hyperosmolar hypernatremia -given 1L IV NS in ED. Na 151-->150-->146 -Stop IVF and follow oral intake -follow lytes #Acute kidney injury- resolved on admission -initial creat 1.15, baseline 0.82. Given 1L NS with improvement to 0.87 -avoid nephrotoxins -Follow labs #NPH -ventriculomegaly redemonstrated on head ct -neuro eval #HTN -continue amlodipine #PVD -continue plavix, statin #copd -no exacerbation -albuterol prn #Mood disorder -pt on 1:1 at facility due to instability/fall risk, not si -continue remeron, risperidone #BPH -continue tamsulosin dvt prophylaxis- heparin full code per NO HCP on file, but per patient's , Antonia says she is HCP pt requires inpt staydue to failure to thrive with kishor and hypERnatremia due to dehydration requiring ivf ,monitoring or renal function, lytes, and expert consultation. pt will also likely require further advanced care planning pending clinical course Quality Stroke Does the patient have a stroke diagnosis?: No VTE Prior VTE?: No VTE Risk Level:: Medical - moderate - high VTE Device Contraindication: Treatment Not Indicated VTE Drug Contraindication: N/A - Med Ordered
--- NOTE | 2023-06-11 14:31 | MHC.CM.PN ---
CM has received a copy of the HCP; it has been uploaded into [employer] and placed on the chart.
--- NOTE | 2023-06-11 16:05 | MHC.SL.SWA ---
Speech Pathologist Impression: Risk of Aspiration Due to: Neurological Condition Poor PO Intake Reduced Cognition Dysphasia Diet Status: Liquid Consistency and Strategies for Safe Swallow: Liquid Intake Recommendation: Honey Thick Liquid Intake Strategies: Liquids by Teaspoon Only Solid Food Consistency: Dietary Recommendations: Pureed (NDD1) Additional Modifications to Solid Foods: Recommend PUREE SOLIDS and THIN LIQUIDS. MEDS CRUSHED in PUREE. RN and MD notified of behavioral concerns. RE reports that he eventually agreed to take blood pressure meds crushed in puree. ACID TANK LINER will continue to follow. Oral Medication Intake: Crushed with Puree Please contact the pharmacy regarding appropriate crushable or liquid drug formulations that are available whenever modified delivery is recommended. Compensatory Strategies and Precautions to be Taken for Safe Swallow: Sitting Upright (90 deg) Supervision While Eating and Drinking for Safe Swallow: Total Assistance (1:1) Swallowing Recommended Treatments: Compens. Strategy Educat. Recommendation for Speech: Inpatient Speech Therapy Comment: RECOMMEND Timeline to reassess: BOB Vp Home Health Clinican/Clinical Fellow: Supervisory Statement: I have reviewed and agree with the student/clinical fellow's documentation: Speech Language Pathologist:
[2023-06-11 16:41] LABS: Glucose, Whole Blood 101 mg/dL (60-115)
--- NOTE | 2023-06-11 17:11 | P.CNNE_ITS ---
History of Present Illness Data of Consult Service Date: 06/11/23 Primary Care Provider: Brad Russell MD HPI Reason for consult: Altered mental status and overall decline This is a 77 year old man with history of cva, copd, pvd on plavix, osteoporosis, hld, pulmonary sarcoidosis, trigeminal neuralgia, zion,htn, presented to [facility] from [place] where is he has been residing since 04/24 due to depression/si but over the last few weeks has not been ambulating, eating, or drinking. Pt is unable to provide meaningful history and has poor insight and judgement. The patient states he cannot eat or drink nor can he be admitted to the hospital due to not having insurance or money. He was ambulating on admission to [place] and is now a 3 person assist noted to have shuffling gait. The patient has been noted to have episodes of dysphagia and there has been concerns about pt aspirating per aide. There have been no fevers or cough reported. There is no health care proxy documented on final, but ed provider did discuss case with patient's , Antonia, who agrees with admission and reports patient is a full code. CT brain reviewed. There is generalized atrophy particularly in temporal lobes and ventriculomegaly. Review of Systems 2 Review of Systems: Yes Unobtainable due to mental condition and Unobtainable due to mental status PMFSH Past Medical History Medical History Pulmonary sarcoidosis CVA (cerebral vascular accident) ZION (iron deficiency anemia) Osteoporosis Trigeminal neuralgia Former smoker COPD (chronic obstructive pulmonary disease) PVD (peripheral vascular disease) HLD (hyperlipidemia) HTN (hypertension) Social History Social History Patient Tobacco Use Status: Never used Tobacco Smoked in Last 30 Days: No Use of substances other than those prescribed or required for medical reasons: No Advance Directives: No Advance Directives Information Provided: Yes Nutrition Risks: No Nutritional Risk service: No Meds Allergies Allergy/AdvReac Type Severity Reaction Status Date / Time ceftriaxone [From Rocephin] AdvReac Unknown Verified 06/10/23 17:08 diphenhydramine AdvReac Unknown Verified 06/10/23 17:08 [From Benadryl] Active Medications: Current Medications Acetaminophen (Acetaminophen 325 Mg Tablet) 650 mg PO Q6H PRN PRN Reason: Pain, Mild (Pain Scale 1-3) Amlodipine Besylate (Amlodipine Besylate 5 Mg Tablet) 5 mg PO DAILY [facility]; Protocol Last Admin: 06/11/23 10:19 Dose: 5 mg Atorvastatin Calcium (Atorvastatin Calcium 80 Mg Tablet) 80 mg PO DAILY [facility] Last Admin: 06/11/23 10:19 Dose: Not Given Calcium Carbonate/Cholecalciferol (Calcium + Vitamin D 250 Mg Tablet) 500 mg PO TID [facility] Last Admin: 06/11/23 16:24 Dose: Not Given Clopidogrel Bisulfate (Clopidogrel Bisulfate 75 Mg Tablet) 75 mg PO DAILY [facility] Last Admin: 06/11/23 10:19 Dose: Not Given Cyanocobalamin (Cyanocobalamin (Vitamin B-12) 1,000 Mcg Tablet) 1,000 mcg PO DAILY [facility] Last Admin: 06/11/23 10:19 Dose: Not Given Docusate Sodium (Docusate Sodium 100 Mg Capsule) 100 mg PO BID PRN PRN Reason: Constipation Ferrous Sulfate (Ferrous Sulfate 324 Mg Tablet.Dr) 324 mg PO DAILY [facility] Last Admin: 06/11/23 10:19 Dose: Not Given Heparin Sodium (Porcine) (Heparin Sodium,Porcine 5,000 Unit/Ml Vial) 5,000 unit SUBCUT Q12H [facility] Last Admin: 06/11/23 09:43 Dose: 5,000 unit Dextrose (D5w) 1,000 mls @ 100 mls/hr IVCONT .Q10H [facility] Last Admin: 06/11/23 08:48 Dose: 100 mls/hr Lactulose (Lactulose 20 Gm/30 Ml Solution) 20 gm PO BID [facility] Last Admin: 06/11/23 10:20 Dose: Not Given Mirtazapine (Mirtazapine 7.5 Mg Tablet) 7.5 mg PO BEDTIME [facility] Multivitamins/Vitamin C (Multivitamin Tablet) 1 tab PO DAILY [facility] Last Admin: 06/11/23 10:20 Dose: Not Given Ondansetron HCl (Ondansetron Hcl 4 Mg/2 Ml Vial) 4 mg IVPUSH Q8H PRN PRN Reason: Nausea and Vomiting Risperidone (Risperidone 0.5 Mg Tablet) 0.5 mg PO BID [facility] Last Admin: 06/11/23 10:20 Dose: 0.5 mg Risperidone (Risperidone 1 Mg Tablet) 1 mg PO BEDTIME [facility] Senna (Sennosides 8.6 Mg Tablet) 17.2 mg PO BEDTIME PRN PRN Reason: Constipation Sodium Chloride (0.9 % Sodium Chloride Flush 3 Ml Syringe) 3 ml IVFLUSH QSHIFT [facility] Last Admin: 06/11/23 16:24 Dose: Not Given Tamsulosin HCl (Tamsulosin Hcl 0.4 Mg Capsule) 0.4 mg PO BEDTIME [facility] Home Medications Medication Instructions Recorded Confirmed Last Taken Type amlodipine 5 mg tablet 5 mg PO DAILY 05/24/23 06/10/23 05/24/23 History clopidogrel 75 mg tablet 75 mg PO DAILY 05/24/23 06/10/23 05/24/23 History cyanocobalamin (vitamin B-12) 500 1,000 mcg PO DAILY 05/24/23 06/10/23 05/24/23 History mcg tablet ferrous gluconate 324 mg (38 mg 324 mg PO DAILY 05/24/23 06/10/23 05/24/23 History iron) tablet multivitamin 1 tab PO DAILY 05/24/23 06/10/23 05/24/23 History tamsulosin 0.4 mg capsule 0.4 mg PO BEDTIME 05/24/23 06/10/23 05/23/23 History atorvastatin 80 mg tablet 80 mg PO DAILY 06/10/23 06/10/23 Unknown History calcium carbonate 600 mg-vitamin 1 tab PO TID 06/10/23 06/10/23 Unknown History D3 5 mcg (200 unit) tablet (Calcium 600 + D(3)) docusate sodium 100 mg tablet 100 mg PO BID PRN Constipation 06/10/23 06/10/23 Unknown History lactulose 20 gram/30 mL oral 20 g PO BID 06/10/23 06/10/23 Unknown History solution mirtazapine 7.5 mg tablet 7.5 mg PO BEDTIME 06/10/23 06/10/23 Unknown History risperidone 0.5 mg tablet 0.5 mg PO BID 06/10/23 06/10/23 Unknown History risperidone 1 mg tablet 1 mg PO BEDTIME 06/10/23 06/10/23 Unknown History Physical Exam 2 Vital Signs: Vital Signs: Last Vital Signs Temp 99.2 F 06/10/23 23:38 Pulse 75 06/10/23 23:38 Resp 18 06/10/23 23:38 BP 141/64 H 06/10/23 23:38 Pulse Ox 95 06/10/23 23:38 O2 Del Method Room Air 06/10/23 23:38 BMI result Body Mass Index 19.7 Neuro: Other: Confused. follows simple commands only. non focal exam. Gait not tested Results Labs 06/11/23 06:12 06/11/23 06:12 Labs: Short CBC 06/10/23 06/11/23 Range/Units 17:20 06:12 WBC 11.7 H 9.9 (4.8-10.8) X10*3/uL Hgb 10.3 L 9.4 L (14.0-18.0) g/dl Hct 31.4 L 29.2 L (42.0-52.0) % Plt Count 195 194 (160-400) X10*3/uL BMP 06/10/23 06/10/23 06/11/23 17:20 21:12 06:12 Sodium 151 H 150 H 146 H Potassium 4.2 3.5 3.0 L Chloride 111 H 114 H 110 H Carbon Dioxide 29 29 25 BUN 42 H 38 H 29 H Creatinine 1.16 0.87 0.82 Calcium 10.5 H D 9.1 D 9.1 Liver Function 06/10/23 Range/Units 17:20 Total Bilirubin 0.5 (0.0-1.0) mg/dL AST 108 H (5-37) U/L ALT 34 (0-40) U/L Alkaline Phosphatase 64 (39-117) U/L Albumin 3.8 (3.5-5.0) g/dL Urine 06/10/23 Range/Units 17:20 Urine Color Dark Yellow Urine Appearance Clear Urine pH 5.5 (5.0-9.0) Ur Specific Forgan >= 1.030 H (1.005-1.025) Urine Protein 30 (1+) H (Neg-Trace) mg/dL Urine Glucose (UA) Negative (Negative) mg/dL Assessment and Plan (1) Failure to thrive in adult: Status: Acute AMS probably a beclouded dementia . I Suspect baseline dementia with worsening that could be multifactorial. Recom. EEG, Lumbar puncture ( high volume tap 20 ml to see if his gait and mentation improve.) Routine CSF studies. Check for infectious and metabolic abnormalities including medication review. (2) Dehydration: Status: Acute (3) Hypernatremia: Status: Acute (4) Altered mental status: Status: Acute Plan 77 year old male with history of cva, copd who is a former smoker, pvd on plavix, osteoporosis, hld, pulmonary sarcoidosis, trigeminal neuralgia, zion,htn, MDD admitted for further management of FTT in adult. #Failure to thrive in adult -suspect underlying parkinson's disease as noted by shuffling gait, dysphagia, rapid cognitive decline, resting tremor -Head CT shows redemonstration of possible NPH -neuro consult -pt/recreational programs director eval -consider psychiatry consult, though per [place] Psychiatrist Dr. Rico, pt is not appropriate for return to psychiatric facility -According to , pt is full code and wants treatment -plan as below #Dysphagia- reproted by facility staff -likely r/t parkinson's disease -recreational programs director evaluation, recommends Puree + Honey thick #Acute hyperosmolar hypernatremia -given 1L IV NS in ED. Na 151-->150-->146 -Stop IVF and follow oral intake -follow lytes #Acute kidney injury- resolved on admission -initial creat 1.15, baseline 0.82. Given 1L NS with improvement to 0.87 -avoid nephrotoxins -Follow labs #NPH -ventriculomegaly redemonstrated on head ct -neuro eval #HTN -continue amlodipine #PVD -continue plavix, statin #copd -no exacerbation -albuterol prn #Mood disorder -pt on 1:1 at facility due to instability/fall risk, not si -continue remeron, risperidone #BPH -continue tamsulosin dvt prophylaxis- heparin full code per NO HCP on file, but per patient's , Antonia says she is HCP pt requires inpt staydue to failure to thrive with kishor and hypERnatremia due to dehydration requiring ivf ,monitoring or renal function, lytes, and expert consultation. pt will also likely require further advanced care planning pending clinical course Procedures Date of Service Date of Service: 06/11/23
--- NOTE | 2023-06-11 19:18 | PC.NURSE ---
This RN assumed pt care @ 1900. Pt resting in bed comfortably. Plan of care ongoing.
--- NOTE | 2023-06-11 20:00 | PC.NURSE ---
Pt requested and given urinal. Plan of care ongoing.
--- NOTE | 2023-06-11 21:22 | PC.NURSE ---
Pt refusing meds. Plan of care ongoing.
[2023-06-11 21:39] VITALS: BP 124/59; PULSE 60; RESP 12; TEMP 36.7; O2SAT 98
--- NOTE | 2023-06-11 22:45 | PC.NURSE ---
Pt positioned in bed for comfort. Plan of care ongoing.
[2023-06-12] VITALS (10 sets, daily range): BP systolic 108–181; BP diastolic 32–65; PULSE 72–100; RESP 18–38; TEMP 36.3–39.8; O2SAT 85–93; BMI 22.4
--- NOTE | 2023-06-12 02:45 | PC.NURSE ---
Pt attempting to remove IV, double wrapped. Ashley care complete. Plan of care ongoing.
--- NOTE | 2023-06-12 03:27 | PC.NURSE ---
Pt continuously grabbing and attempting to pull out IV, and pulling on the TV. Pt yelling out help Plan of care ongoing.
--- NOTE | 2023-06-12 04:26 | PC.NURSE ---
0345 am Dextrose not given, pt pulled out IV access. Plan of care ongoing.
--- NOTE | 2023-06-12 04:38 | PC.NURSE ---
Pt refusing meds and IV line placement. congregational care pastor aware. Plan of care ongoing.
--- NOTE | 2023-06-12 07:24 | PC.NURSE ---
PT SEEN BY DR. GUAJARDO, WILL CONTINUE TO MONITOR
--- NOTE | 2023-06-12 08:15 | PC.NURSE ---
PT IS A/O X 1 WITH CONFUSION. NO SOB/EUGENE NOTED. NO EDEMA NOTED. PT DENIES ANY PAIN/DISC. MEDS HEPARIN AND PLAVIX HELD PER HOSP MD FOR LP TO BE DONE LATER TODAY. PT TAKES MEDS CRUSHED IN PUDDING/APPLE SAUCE. PT PULLED OUT HIS IV THAT WRAPPED WITH CDD ON BREEDING MANAGER, IV TO BE REPLACED BY THIS RN. PT HAS BEEN TAKING NAPS 2NDARY TO REPORT FROM NIGHT RN THAT PT DID NOT SLEEP LAST NIGHT. WILL CONTINUE TO MONITOR.
[2023-06-12] MEDS: amLODIPine Besylate 5 MG TABLET PO (08:22)
[2023-06-12] MEDS: Cyanocobalamin (Vitamin B-12) 1,000 MCG TABLET 1000 MCG PO (08:22)
[2023-06-12] MEDS: risperiDONE 0.5 MG TABLET PO (08:22)
[2023-06-12] MEDS: Multivitamin TABLET 1 TAB PO (08:22)
[2023-06-12] MEDS: Atorvastatin Calcium 80 MG TABLET PO (08:23)
[2023-06-12] MEDS: Ferrous Sulfate 324 MG TABLET.DR PO (08:23)
[2023-06-12] MEDS: Lactulose 20 GM/30 ML SOLUTION PO (08:24)
[2023-06-12 08:28] LABS: Anion Gap 10 (12-20); Blood Urea Nitrogen 13 mg/dL (9-16); Calcium 8.6 mg/dL (8.4-10.2); Carbon Dioxide 27 mmol/L (22-29); Chloride 107 mmol/L (96-108); Creatinine Clr Calc Pharmacy 67.1; Estimated Glomerular Filt Rate > 60; Glucose Random 89 mg/dL (60-115); Sodium 141 mmol/L (135-145)
[2023-06-12 08:41] LABS: Prothrombin Time 12.5 SEC (11.1-13.3)
--- NOTE | 2023-06-12 10:00 | MHC.EDTECH ---
@10:01 I gave care/washed up Patient and transferred him to the recliner.
--- NOTE | 2023-06-12 10:55 | PC.NURSE ---
PER DR. GUAJARDO, NO LP (PROCEDURE) TO BE DONE TODAY. THE PT CAN EAT AND ALSO TOO GIVE HEPARIN. PLAVIX WILL BE HELD FOR 5 DAYS..
--- NOTE | 2023-06-12 10:59 | PC.NURSE ---
# [address] R LOWER FOREARM AND WRAPPED WITH AN LUIZ BANDAGE. WILL CONTINUE TO MONITOR.
[2023-06-12] MEDS: Potassium Chloride Packet 20 MEQ PACKET 40 MEQ PO (11:04)
[2023-06-12] MEDS: Heparin Sodium,Porcine 5,000 UNIT/ML VIAL 5000 UNIT SUBCUT ×2 (11:06→22:25)
--- NOTE | 2023-06-12 11:07 | P.PNIM_ITS ---
Subjective Subjective Date of Service: 06/12/23 Interval History: f/u Follow up on adult failure to thrive, dehydration and Acute kidney insuficiency Overall clinically is better, dehdyration is improved, sodium level is normal and creatine is normal. He remains conrused, unsteady. Neuro saw him yesterday and recommending LP for NPH work up Physical Exam 2 Vital Signs: Vital Signs: Last Vital Signs Temp 98.7 F 06/12/23 08:00 Pulse 72 06/12/23 08:00 Resp 19 06/12/23 08:00 BP 122/58 L 06/12/23 08:00 Pulse Ox 92 06/12/23 08:00 O2 Del Method Room Air 06/12/23 08:00 BMI result Body Mass Index 19.7 Constitutional - Awake and Alert, No apparent distress but confused Eyes - PERRLA, EOMI Cardiovascular - S1S2, RRR, No edema Respiratory - Normal lung expansion, Normal respiratory effort, No respiratory distress, CTA bilaterally Gastrointestinal - NT / ND; +BS; No rebound or guarding Extremities - no calf tenderness bilaterally, no swelling Skin - Warm/Dry Neurological - Alert & oriented to self only. No gross focal deficit but not able to fully participate in exam Psychological -flat affect Objective Data Active Medications Acetaminophen (Acetaminophen 325 Mg Tablet) 650 mg PO Q6H PRN PRN Reason: Pain, Mild (Pain Scale 1-3) Amlodipine Besylate (Amlodipine Besylate 5 Mg Tablet) 5 mg PO DAILY [facility]; Protocol Last Admin: 06/12/23 08:22 Dose: 5 mg Documented By: YOLANDA Atorvastatin Calcium (Atorvastatin Calcium 80 Mg Tablet) 80 mg PO DAILY [facility] Last Admin: 06/12/23 08:23 Dose: 80 mg Documented By: YOLANDA Cyanocobalamin (Cyanocobalamin (Vitamin B-12) 1,000 Mcg Tablet) 1,000 mcg PO DAILY [facility] Last Admin: 06/12/23 08:22 Dose: 1,000 mcg Documented By: YOLANDA Docusate Sodium (Docusate Sodium 100 Mg Capsule) 100 mg PO BID PRN PRN Reason: Constipation Ferrous Sulfate (Ferrous Sulfate 324 Mg Tablet.) 324 mg PO DAILY [facility] Last Admin: 06/12/23 08:23 Dose: 324 mg Documented By: YOLANDA Heparin Sodium (Porcine) (Heparin Sodium,Porcine 5,000 Unit/Ml Vial) 5,000 unit SUBCUT Q12H [facility] Last Admin: 06/12/23 11:06 Dose: 5,000 unit Potassium Chloride/Dextrose/Sod Cl (Kcl 20 Meq In 5% Dex/0.45% Sod) 20 meq in 1,000 mls @ 100 mls/hr IVCONT .Q10H [facility] Lactulose (Lactulose 20 Gm/30 Ml Solution) 20 gm PO BID [facility] Last Admin: 06/12/23 08:24 Dose: 20 gm Documented By: YOLANDA Mirtazapine (Mirtazapine 7.5 Mg Tablet) 7.5 mg PO BEDTIME [facility] Last Admin: 06/11/23 21:23 Dose: Not Given Documented By: JUDE Non-Admin Reason: Patient Refused Multivitamins/Vitamin C (Multivitamin Tablet) 1 tab PO DAILY [facility] Last Admin: 06/12/23 08:22 Dose: 1 tab Documented By: YOLANDA Ondansetron HCl (Ondansetron Hcl 4 Mg/2 Ml Vial) 4 mg IVPUSH Q8H PRN PRN Reason: Nausea and Vomiting Risperidone (Risperidone 0.5 Mg Tablet) 0.5 mg PO BID [facility] Last Admin: 06/12/23 08:22 Dose: 0.5 mg Documented By: YOLANDA Risperidone (Risperidone 1 Mg Tablet) 1 mg PO BEDTIME [facility] Last Admin: 06/11/23 21:23 Dose: Not Given Documented By: JUDE Non-Admin Reason: Patient Refused Senna (Sennosides 8.6 Mg Tablet) 17.2 mg PO BEDTIME PRN PRN Reason: Constipation Sodium Chloride (0.9 % Sodium Chloride Flush 3 Ml Syringe) 3 ml IVFLUSH QSHIFT [facility] Last Admin: 06/12/23 08:23 Dose: Not Given Documented By: YOLANDA Non-Admin Reason: PT D/C'D HIS IV ON [facility] Tamsulosin HCl (Tamsulosin Hcl 0.4 Mg Capsule) 0.4 mg PO BEDTIME [facility] Last Admin: 06/11/23 21:24 Dose: Not Given Documented By: JUDE Non-Admin Reason: Patient Refused Labs 06/11/23 06:12 06/12/23 08:09 Labs: Laboratory Results - last 24 hr 03/06/11/23 06/12/23 11:27 16:32 08:09 Hold Purple Top SEE NOTE PT INR Anion Gap 10 L Estim Creat Clear Calc 67.1 Estimated GFR > 60 POC Glucose 104 101 Random Glucose 89 Calcium 8.6 06/12/23 08:30 Hold Purple Top PT 12.5 INR 1.0 Anion Gap Estim Creat Clear Calc Estimated GFR POC Glucose Random Glucose Calcium Assessment and Plan (1) Failure to thrive in adult: Status: Acute (2) Dehydration: Status: Acute (3) Hypernatremia: Status: Acute (4) Altered mental status: Status: Acute Plan 77 year old male with history of cva, copd who is a former smoker, pvd on plavix, osteoporosis, hld, pulmonary sarcoidosis, trigeminal neuralgia, zion,htn, MDD admitted for further management of FTT in adult. #Failure to thrive in adult -suspect underlying parkinson's disease as noted by shuffling gait, dysphagia, rapid cognitive decline, resting tremor -Head CT shows redemonstration of possible NPH -neuro consult recommends LP--not able to due as IR is requesting off Plavix for 5 days, last dose unknown but none so far during this hopitalization -pt/physician aide eval -psychiatry consult, though per [place] Psychiatrist Dr. Rico, pt is not appropriate for return to psychiatric facility -According to , pt is full code and wants treatment -plan as below #Dysphagia- reproted by facility staff -likely r/t parkinson's disease -physician aide evaluation, recommends Puree + Honey thick #Acute hyperosmolar hypernatremia -given 1L IV NS in ED. Na 151-->150-->141 -follow lytes #Acute kidney injury- resolved on admission -initial creat 1.15, baseline 0.82. Given 1L NS with improvement to 0.87 -avoid nephrotoxins -Follow labs HypOkalemia--replace with IV and PO K #NPH -ventriculomegaly redemonstrated on head ct -neuro eval -LP per neuro recommendation, but not able to do until 5 days of Plavix, last dose unknown but will investigate further #HTN -continue amlodipine #PVD -continue plavix (hold), statin #copd -no exacerbation -albuterol prn #Mood disorder -pt on 1:1 at facility due to instability/fall risk, not si -continue remeron, risperidone #BPH -continue tamsulosin dvt prophylaxis- heparin full code per NO HCP on file, but per patient's , Antonia says she is HCP pt requires inpt stay due to failure to thrive with kishor and hypERnatremia due to dehydration requiring ivf ,monitoring or renal function, lytes, and expert consultation. pt will also likely require further advanced care planning pending clinical course will reach out to [facility] Stroke Does the patient have a stroke diagnosis?: No VTE Prior VTE?: No VTE Risk Level:: Medical - moderate - high VTE Device Contraindication: Treatment Not Indicated VTE Drug Contraindication: N/A - Med Ordered
[2023-06-12] MEDS: KCl 20 mEq in 5% Dex/0.45% Sod 20 MEQ/1,000 ML IV.SOLN 100 MEQ IVCONT (11:20)
[2023-06-12 11:50] LABS: Magnesium 1.8 mg/dL (1.6-2.6)
--- NOTE | 2023-06-12 13:10 | PC.NURSE ---
PT'S IS AT BEDSIDE, PT AWARE OF PLAN OF CARE.
--- NOTE | 2023-06-12 13:44 | PC.NURSE ---
SPEECH THERAPY AT BEDSIDE, PT AWARE OF PLAN OF CARE.
[2023-06-12] MEDS: 0.9 % Sodium Chloride Flush 3 ML SYRINGE IVFLUSH (14:52)
[2023-06-12] MEDS: Acetaminophen 325 MG TABLET 650 MG PO (14:55)
[2023-06-12] MEDS: Sennosides 8.6 MG TABLET 17.2 MG PO (14:55)
--- NOTE | 2023-06-12 16:11 | PC.NURSE ---
ICE PACK TO NECK AND GROIN. DR. GUAJARDO AT BEDSIDE. PT IS NOW NPO, ORDERED LABS, BLOOD CULTURE, SARS/FLU/COVID AND CXR. CXR DONE AT BEDSIDE.
--- NOTE | 2023-06-12 16:13 | PC.NURSE ---
PT PLACE ON 2L/M VIA N/C. O2 SAT 93% ON 2L/M.
--- NOTE | 2023-06-12 16:23 | PC.NURSE ---
PT'S VIA PHONE STATES HE WOULD NOT WANT TO BE ON LIFE SUPPORT . DR. GUAJARDO IS AWARE.
--- NOTE | 2023-06-12 16:23 | PM.EVENT ---
Event Note Date of Service: 06/12/23 Event Note: Patient has developped fever of 101, Hypoxia and seems more confused. Stat CBC, BMP and lactic, BNP and CXR, flu, rsv, covid, UA requested. O2 aply and now sating around 93 from 85.. I spoke and updated the over the phone and she tells me that patient has been declining since February and has not been eating or drinking well. It is unclear the last timne he took Plavix. Goals of life discussed with lilli who says that patient would not want to be put on life support or CPR and therefore will change his status to DNR/DNI. Also confirmed with spring that last dose of Plavix was on 06/09 Will start empric Abx with Chip and Elvia giving pen allergy New diagnoses: Acute hypoxic respiratory failure Fever, supected pneumonia and change in code status I spent about 45 minutes at the bedside Time Spent With Patient Time: Total time managing care of this patient today ____ minutes.
--- NOTE | 2023-06-12 16:38 | PC.NURSE ---
PT'S VIA PHONE IRRITATED HE WOULD WANT TO BE ON LIFE SUPPORT OR HAVE CPR AND NOT EXTRA MEASURES TO BE DONE . DR. GUAJARDO AWARE.
[2023-06-12 16:52] LABS: Hematocrit 27.2 % (42.0-52.0); Hemoglobin 8.9 g/dl (14.0-18.0); Mean Corpuscular HGB Conc 32.7 g/dl (31.0-36.0); Mean Corpuscular Hemoglobin 29.6 pg (27.0-33.0); Mean Corpuscular Volume 90.4 fL (80.0-98.0); Mean Platelet Volume 10.9 fL (9.4-12.4); Platelet Count 223 X10*3/uL (160-400); Red Blood Count 3.01 X10*6/uL (4.60-5.80); Red Cell Distribution Width 14.9 % (11.0-16.0); White Blood Count 8.7 X10*3/uL (4.8-10.8)
[2023-06-12 17:10] LABS: Anion Gap 16 (12-20); B Type Natriuretic Peptide 182 pg/mL (<100); Blood Urea Nitrogen 13 mg/dL (9-16); Calcium 8.7 mg/dL (8.4-10.2); Carbon Dioxide 21 mmol/L (22-29); Chloride 105 mmol/L (96-108); Estimated Glomerular Filt Rate > 60; Glucose Random 95 mg/dL (60-115); Potassium 3.5 mmol/L (3.3-5.1); Sodium 138 mmol/L (135-145)
--- NOTE | 2023-06-12 17:10 | PC.NURSE ---
#20 IV PLACED TO R LOWER FOREARM AND WRAPPED WITH LUIZ WRAP.
[2023-06-12 17:14] LABS: Lactic Acid 6.4 mmol/L (0.5-2.0)
--- NOTE | 2023-06-12 17:20 | PM.EVENT ---
Event Note Date of Service: 06/12/23 Event Note: Pt developed fever 101, tachycardia to 100 and hypoxic to 85% on RA. Aspiration pneumonia suspected. UA/UC, CXR pending. Levaquin and vanco added (allergy to pcn and ctx). Lactic acid resulted at 6.4. Severe sepsis suspected. Will give 30ml/kg bolus fluids. Trend lactic acid. Blood cultures pending. Time Spent With Patient Time: Total time managing care of this patient today ____ minutes.
[2023-06-12] MEDS: levoFLOXacin/D5W 750 MG/150 ML PIGGYBACK 100 MG IV (17:32)
--- NOTE | 2023-06-12 17:32 | PC.NURSE ---
PACKAGING MANAGER AT BEDSIDE EARLIER, PT AWARE OF PLAN OF CARE.
--- NOTE | 2023-06-12 17:32 | MHC.SL.SWA ---
Risk of Aspiration Due to: Neurological Condition Poor PO Intake Reduced Cognition Dysphasia Diet Status: UPGRADE Liquid Consistency and Strategies for Safe Swallow: Liquid Intake Recommendation: Honey Thick Liquid Intake Strategies: Small Sips Double Swallow Solid Food Consistency: Dietary Recommendations: Grnd/Mech Altered (NDD2) Oral Medication Intake: Crushed with Puree Please contact the pharmacy regarding appropriate crushable or liquid drug formulations that are available whenever modified delivery is recommended. Compensatory Strategies and Precautions to be Taken for Safe Swallow: Sitting Upright (90 deg) Double Swallow No Straw Small Bites and Sips Alternate Liquids/Solids Rate of Ingestion Change Oral Check Avoid Specific Foods Supervision While Eating and Drinking for Safe Swallow: Total Supervision (1:1) Swallowing Recommended Treatments: Compens. Strategy Educat. Recommendation for Speech: Inpatient Speech Therapy Recommend UPGRADE to GROUND solids (NDD2). Continue w/ HONEY THICK liquids, cup sips OK. Patient requires FULL SUPERVISION/ASSIST for all PO. Requires cues to swallow again. Monitor for wet vocal quality. Discontinue PO if presenting w/ cough/throat clear follow swallow and/or persistent wet vocal quality. HANDLE FINISHER to continue to follow. Gm Clinican/Clinical Fellow: No Supervisory Statement: I have reviewed and agree with the student/clinical fellow's documentation: N/A Speech Language Pathologist: Elisha Figueredo M.A., [facility]-HANDLE FINISHER
[2023-06-12 18:44] LABS: Reflex Lactate? Lactic Acid Added
[2023-06-12 19:20] LABS: Influenza A PCR NEGATIVE (Negative); Influenza B PCR NEGATIVE (Negative); Resp Syncy Virus RNA Qual PCR NEGATIVE (Negative); SARS COV2 PCR INHOUSE NEGATIVE (Negative)
[2023-06-12 19:28] LABS: ~Lactic Acid-LAB USE ONLY 3.1 mmol/L (0.5-2.0)
[2023-06-12] MEDS: vancomycin HCL 1,500 MG in 0.9 % Sodium Chloride 500 ML 333.33 MG IV (19:40)
--- NOTE | 2023-06-12 19:56 | PC.NURSE ---
Assumed care of pt at 1915. PT alert to self only needing constant redirection to stop pulling on IV lines and [place] cath. K in d51/2NS paused per day shift nurse. Fluids and levo complete, resumed K in d51/2N, and started vanco.
[2023-06-12 20:32] LABS: Appearance Urine Clear; Color Urine Yellow; Glucose Urine UA Negative (Negative); Leukocyte Esterase Urine Negative (Negative); Nitrite Urine Negative (Negative); Specific Gravity - Urine 1.015 (1.005-1.025); Urine Blood Negative (Negative); Urine Ketones Negative (Negative); Urine Protein Trace mg/dL (Neg-Trace)
[2023-06-12 20:41] LABS: Bacteria Urine None Seen (None Seen); Hyaline Casts Urine 0-2 /LPF (0-2); RBC Urine 0-2 /HPF (0-2); Squamous Epithelial Cell Urine 0-2 /HPF (0-2); WBC Urine 0-5 /HPF (0-5)
[2023-06-12 21:06] LABS: Reflex Lactate? 2 Y
--- NOTE | 2023-06-12 21:47 | PM.EVENT ---
Event Note Date of Service: 06/12/23 Event Note: Nurse reported that patient is febrile and tachypneic. Reviewed notes from earlier in the day where patient was found to be febrile and aspiration pneumonia suspected. Lactic acid and blood culture was obtained. Patient was resuscitated with IV crystalloids. Empiric IV antibiotics initiated. Will change diet to NPO. Noted that patient is DNR/DNI. Blood pressure currently stable Time Spent With Patient Time: Total time managing care of this patient today ____ minutes.
[2023-06-12] MEDS: Acetaminophen 1,000 MG/100 ML PIGGYBACK 400 MG IV (21:53)
[2023-06-12] MEDS: 0.9 % Sodium Chloride 1,000 ML 100 ML IVCONT (21:53)
[2023-06-12 22:03] LABS: ~Lactic Acid-LAB USE ONLY 3.5 mmol/L (0.5-2.0)
--- NOTE | 2023-06-12 22:30 | PHA.PROG ---
Admission Date/Time: June 10, 2023 21:21 Indication: Resp. Infection Weight in k.1 kg Adjusted body weight in K.5 kg Mona body weight in K.1 kg Obesity Dosing Indication % IBW: n/a Serum Creatinine - Last 168 Hours 06/10/23 06/10/23 06/11/23 17:20 21:12 06:12 Creatinine 1.16 0.87 0.82 06/12/23 06/12/23 08:09 16:33 Creatinine 0.72 0.78 Estimated CrCl and GFR - Last 168 Hours 06/10/23 06/10/23 06/11/23 17:20 21:12 06:12 Estim Creat Clear Calc 41.7 55.6 58.9 Estimated GFR > 60 > 60 > 60 06/12/23 06/12/23 08:09 16:33 Estim Creat Clear Calc 67.1 62.0 Estimated GFR > 60 > 60 Vancomycin Loading Dose: 1500 mg Current Vancomycin Dosing Regimen: 750 mg Q12H Date and Time for next Vancomycin Level to be drawn: 06/13 @ 0600 Pharmacist Comments on Vancomycin Plan: Patient received an adequate load dose in the ER 06/11 @ 1940 Maitenenace dose vanco 750 mg Q12H is scheduled to start 06/12 @ 0800. Predicted AUC 523 with a trough of 16.8 level will be drawn prior to 4th dose Pharmacy will monitor renal function daily. Shayy Tse, Chris Vancomycin dosing will take advantage of [employer] as a clinical decision support tool that uses Bayesian modeling to calculate individual patient's pharmacokinetic parameters and forecast the patient's drug concentration time course with the target goal AUC 24 range of 400 - 600 mg/L/hr.
[2023-06-13] VITALS (7 sets, daily range): BP systolic 109–139; BP diastolic 59–70; PULSE 77–103; RESP 15–30; TEMP 36.3–38.4; O2SAT 91–95
[2023-06-13] MEDS: Acetaminophen Supp 650 MG SUPP.RECT PR ×2 (00:23→23:42)
--- NOTE | 2023-06-13 06:26 | PC.NURSE ---
Pt arrived to on bed at 2100, pt noted to have episodes of stiffness, shakes and tremors and followed with somnolence and snoring, Tachypneic at 38, desating at 81 % with O2 at 2L/min via NC, LSC, occasional gurgling and bouts of non productive cough, warm to touch, rectal wimg=086.6, was able to answer briefly as oriented to self only, Dr. Hooker was notified, O2 was titrated to maintained above 90%, ice packs placed under armpits, po meds heldd by Dr. Hooker, Acetaminophen 1gm IV given. At 2200, repeat Lactic came at 3.5, Dr. Hooker was made aware. At 12mn, Temp =101.2 rectal, still with frequent stiffness, shakes and tremors, Dr. Hooker was updated, ordered to start cooling blanket, and a dose of Tylenol supp 650mg, cooling blanket was provided by Nursing sup, temp monitored and pt was repositioned on bed frequently. At 0300, temp=97.6 rectal, cooling blanket removed, skin remained intact.
[2023-06-13] MEDS: 0.9 % Sodium Chloride 1,000 ML 100 ML IVCONT (08:41)
[2023-06-13] MEDS: vancomycin HCL 750 MG in 0.9 % Sodium Chloride 250 ML 265 MG IV ×2 (08:41→22:30)
[2023-06-13 09:34] LABS: Hemoglobin 8.3 g/dl (14.0-18.0); Mean Corpuscular HGB Conc 33.2 g/dl (31.0-36.0); Mean Corpuscular Hemoglobin 29.9 pg (27.0-33.0); Mean Corpuscular Volume 89.9 fL (80.0-98.0); Mean Platelet Volume 11.1 fL (9.4-12.4); Platelet Count 196 X10*3/uL (160-400); Red Blood Count 2.78 X10*6/uL (4.60-5.80); Red Cell Distribution Width 14.9 % (11.0-16.0); White Blood Count 19.4 X10*3/uL (4.8-10.8)
[2023-06-13 09:50] LABS: Anion Gap 12 (12-20); Blood Urea Nitrogen 12 mg/dL (9-16); Carbon Dioxide 18 mmol/L (22-29); Chloride 111 mmol/L (96-108); Creatinine Clr Calc Pharmacy 76.4; Estimated Glomerular Filt Rate > 60; Glucose Random 70 mg/dL (60-115); Potassium 3.4 mmol/L (3.3-5.1); Sodium 138 mmol/L (135-145)
[2023-06-13 10:03] LABS: Calcium 7.9 mg/dL (8.4-10.2)
--- NOTE | 2023-06-13 10:32 | HE.PHANOTE ---
VANCO DOSE ADJUSTMENT BASED ON SCR DOSE CONTINUED AT 750 Q 12H. NEXT TROUGH 06/13 @ 0600
[2023-06-13] MEDS: Heparin Sodium,Porcine 5,000 UNIT/ML VIAL 5000 UNIT SUBCUT ×2 (11:05→20:48)
--- NOTE | 2023-06-13 12:22 | HO.PM.IMPN ---
Subjective Subjective Date of Service: 06/13/23 Interval History: Patient is confused, remains hypoxic on oxygen periodic tremors--not seizures ? parkinsononian WBC has gone to 19 from 8 overnight, O2 sat on low side Physical Exam Vital Signs: Vital Signs: Last Vital Signs Temp 99.8 F 06/13/23 07:23 Pulse 85 06/13/23 11:37 Resp 18 06/13/23 07:23 BP 139/61 06/13/23 11:37 Pulse Ox 91 L 06/13/23 11:37 O2 Del Method Nasal Cannula 06/13/23 07:23 O2 Flow Rate 3 06/13/23 07:23 BMI result Body Mass Index 22.4 Constitutional - Awake and Alert, No apparent distress but confused, intermittent tremors Eyes - PERRLA, EOMI Cardiovascular - S1S2, RRR, No edema Respiratory - Normal lung expansion, Normal respiratory effort, no apparent respiratoy distre Gastrointestinal - NT / ND; +BS; No rebound or guarding Extremities - no calf tenderness bilaterally, no swelling Skin - Warm/Dry Neurological - Alert & oriented to self only. No gross focal deficit but not able to fully participate in exam, intermittent tremors Psychological -flat affect Objective Data Active Medications Acetaminophen (Acetaminophen 325 Mg Tablet) 650 mg PO Q6H PRN PRN Reason: Pain, Mild (Pain Scale 1-3) Last Admin: 06/12/23 14:55 Dose: 650 mg Documented By: YOLANDA Acetaminophen (Acetaminophen Supp 650 Mg Supp.Rect) 650 mg CA Q6H PRN PRN Reason: Fever >100.4 Last Admin: 06/13/23 00:23 Dose: 650 mg Documented By: JOANNEILChristiane Amlodipine Besylate (Amlodipine Besylate 5 Mg Tablet) 5 mg PO DAILY [facility]; Protocol Last Admin: 06/13/23 08:30 Dose: Not Given Documented By: RAYMON Non-Admin Reason: NPO Atorvastatin Calcium (Atorvastatin Calcium 80 Mg Tablet) 80 mg PO DAILY [facility] Last Admin: 06/13/23 08:30 Dose: Not Given Documented By: RAYMON Non-Admin Reason: NPO Cyanocobalamin (Cyanocobalamin (Vitamin B-12) 1,000 Mcg Tablet) 1,000 mcg PO DAILY [facility] Last Admin: 06/13/23 08:30 Dose: Not Given Documented By: RAYMON Non-Admin Reason: NPO Docusate Sodium (Docusate Sodium 100 Mg Capsule) 100 mg PO BID PRN PRN Reason: Constipation Ferrous Sulfate (Ferrous Sulfate 324 Mg Tablet.Dr) 324 mg PO DAILY [facility] Last Admin: 06/13/23 08:30 Dose: Not Given Documented By: RAYMON Non-Admin Reason: NPO Heparin Sodium (Porcine) (Heparin Sodium,Porcine 5,000 Unit/Ml Vial) 5,000 unit SUBCUT Q12H [facility] Last Admin: 06/13/23 11:05 Dose: 5,000 unit Documented By: RAYMON Levofloxacin (Levaquin) 750 mg in 150 mls @ 100 mls/hr IV Q24H [facility] Sodium Chloride (Ns) 1,000 mls @ 100 mls/hr IVCONT .Q10H [facility] Last Admin: 06/13/23 08:41 Dose: 100 mls/hr Documented By: RAYMON Vancomycin HCl 750 mg/ Sodium (Chloride) 265 mls @ 265 mls/hr IV Q12H [facility] Last Infusion: 06/13/23 09:46 Dose: Infused Documented By: RAYMON Lactulose (Lactulose 20 Gm/30 Ml Solution) 20 gm PO BID [facility] Last Admin: 06/13/23 08:30 Dose: Not Given Documented By: RAYMON Non-Admin Reason: NPO Mirtazapine (Mirtazapine 7.5 Mg Tablet) 7.5 mg PO BEDTIME [facility] Last Admin: 06/12/23 22:34 Dose: Not Given Documented By: RAÚL Non-Admin Reason: Physician Approved Multivitamins/Vitamin C (Multivitamin Tablet) 1 tab PO DAILY [facility] Last Admin: 06/13/23 08:30 Dose: Not Given Documented By: RAYMON Non-Admin Reason: NPO Ondansetron HCl (Ondansetron Hcl 4 Mg/2 Ml Vial) 4 mg IVPUSH Q8H PRN PRN Reason: Nausea and Vomiting Pharmacy Consult (Consult Rx Vancomycin Dosing) 1 each MISCELLANE DAILY PRN PRN Reason: Consult order Risperidone (Risperidone 0.5 Mg Tablet) 0.5 mg PO BID [facility] Last Admin: 06/13/23 08:31 Dose: Not Given Documented By: RAYMON Non-Admin Reason: NPO Risperidone (Risperidone 1 Mg Tablet) 1 mg PO BEDTIME [facility] Last Admin: 06/12/23 22:34 Dose: Not Given Documented By: RAÚL Non-Admin Reason: Physician Approved Senna (Sennosides 8.6 Mg Tablet) 17.2 mg PO BEDTIME PRN PRN Reason: Constipation Last Admin: 06/12/23 14:55 Dose: 17.2 mg Documented By: YOLANDA Sodium Chloride (0.9 % Sodium Chloride Flush 3 Ml Syringe) 3 ml IVFLUSH QSHIFT [facility] Last Admin: 06/13/23 11:13 Dose: Not Given Documented By: SOFFAA Non-Admin Reason: See Note Tamsulosin HCl (Tamsulosin Hcl 0.4 Mg Capsule) 0.4 mg PO BEDTIME [facility] Last Admin: 06/12/23 22:34 Dose: Not Given Documented By: RAÚL Non-Admin Reason: Physician Approved Labs 06/13/23 09:04 06/13/23 09:00 Labs: Laboratory Results - last 24 hr 06/12/23 06/12/23 06/12/23 16:30 16:33 19:02 MCV 90.4 MCH 29.6 MCHC 32.7 RDW 14.9 Plt Count 223 MPV 10.9 Absolute Nucleated RBC 0.000 Nucleated RBC % (auto) 0.0 Anion Gap 16 Estim Creat Clear Calc 62.0 Estimated GFR > 60 Random Glucose 95 Lactic Acid 6.4 H* Lactic Acid F/U @ 2Hr 3.1 H* Lactic Acid F/U @ 4Hr Calcium 8.7 B-Natriuretic Peptide 182 H Urine Color Urine Appearance Urine pH Ur Specific [place] Urine Protein Urine Glucose (UA) Urine Ketones Urine Blood Urine Nitrite Ur Leukocyte Esterase Urine RBC Urine WBC Ur Squamous Epith Cells Urine Bacteria Hyaline Casts Influenza Type A (PCR) NEGATIVE Influenza Type B (PCR) NEGATIVE RSV RNA Qual (PCR) NEGATIVE SARS-CoV-2 RNA (RT-PCR) NEGATIVE 06/12/23 06/12/23 06/13/23 20:08 21:20 09:00 MCV MCH MCHC RDW Plt Count MPV Absolute Nucleated RBC Nucleated RBC % (auto) Anion Gap 12 Estim Creat Clear Calc 76.4 Estimated GFR > 60 Random Glucose 70 Lactic Acid Lactic Acid F/U @ 2Hr Lactic Acid F/U @ 4Hr 3.5 H* Calcium 7.9 L D B-Natriuretic Peptide Urine Color Yellow Urine Appearance Clear Urine pH 8.0 Ur Specific [place] 1.015 Urine Protein Trace Urine Glucose (UA) Negative Urine Ketones Negative Urine Blood Negative Urine Nitrite Negative Ur Leukocyte Esterase Negative Urine RBC 0-2 Urine WBC 0-5 Ur Squamous Epith Cells 0-2 Urine Bacteria None Seen Hyaline Casts 0-2 Influenza Type A (PCR) Influenza Type B (PCR) RSV RNA Qual (PCR) SARS-CoV-2 RNA (RT-PCR) 06/13/23 09:04 MCV 89.9 MCH 29.9 MCHC 33.2 RDW 14.9 Plt Count 196 MPV 11.1 Absolute Nucleated RBC 0.000 Nucleated RBC % (auto) 0.0 Anion Gap Estim Creat Clear Calc Estimated GFR Random Glucose Lactic Acid Lactic Acid F/U @ 2Hr Lactic Acid F/U @ 4Hr Calcium B-Natriuretic Peptide Urine Color Urine Appearance Urine pH Ur Specific [place] Urine Protein Urine Glucose (UA) Urine Ketones Urine Blood Urine Nitrite Ur Leukocyte Esterase Urine RBC Urine WBC Ur Squamous Epith Cells Urine Bacteria Hyaline Casts Influenza Type A (PCR) Influenza Type B (PCR) RSV RNA Qual (PCR) SARS-CoV-2 RNA (RT-PCR) Assessment and Plan (1) Failure to thrive in adult: Status: Acute (2) Dehydration: Status: Acute (3) Hypernatremia: Status: Acute (4) Altered mental status: Status: Acute Plan 77 year old male with history of cva, copd who is a former smoker, pvd on plavix, osteoporosis, hld, pulmonary sarcoidosis, trigeminal neuralgia, zion,htn, MDD admitted for further management of FTT in adult. Had aspiration even on 06/11 resulting in acute hypoxic respiratory failure, Severe sepsis due to aspiration PNA, sepsis focal exam was done at 1800 on 06/11 Received apropriate amount of fluid, lactic acid came down -Started on Broad spec Abx with Vanco and Levaquin has pen and cephalosporin allergy -cultures pending #Failure to thrive in adult -suspect underlying parkinson's disease as noted by shuffling gait, dysphagia, rapid cognitive decline, resting tremor since february -Head CT shows redemonstration of possible NPH -neuro consult recommends LP--not able to due as IR is requesting off Plavix for 5 days, last dose june 09 l -pt/freight associate eval before dc -psychiatry consult, though per [facility]iatrist Dr. Rico, pt is not appropriate for return to psychiatric facility -reconsulting Neuro for tremor management - #Dysphagia- reproted by facility staff, initially did ok following swallow eval but have aspirated llter on -likely r/t parkinson's disease -Now NPO, IVF while NPO #Acute hyperosmolar hypernatremia--resolved with IVF -given 1L IV NS in ED. Na 151-->150-->141 -follow lytes #Acute kidney injury- resolved on admission -initial creat 1.15, baseline 0.82. Given 1L NS with improvement to 0.87 -avoid nephrotoxins -Follow labs HypOkalemia--replace with IV and PO K, and resolved # mild hyperchloremic metabolic acidosis--change fluid to LR #NPH -ventriculomegaly redemonstrated on head ct -neuro eval -LP per neuro recommendation, but not able to do until 5 days of Plavix, last dose june 09, h #HTN -continue amlodipine #PVD -continue plavix (hold), statin #copd -no exacerbation -albuterol prn #Mood disorder -pt on 1:1 at facility due to instability/fall risk, not si -continue remeron, risperidone #BPH -continue tamsulosin dvt prophylaxis- heparin Goals of care discussed with on 06/11 and patient is now DNR/DNI pt requires inpt stay due to failure to thrive with kishor and hypERnatremia due to dehydration requiring ivf ,monitoring or renal function, lytes, and expert consultation. pt will also likely require further advanced care planning pending clinical course Care discussed with at bedside today, Quality Stroke Does the patient have a stroke diagnosis?: No VTE Prior VTE?: No VTE Risk Level:: Medical - moderate - high VTE Device Contraindication: Treatment Not Indicated VTE Drug Contraindication: N/A - Med Ordered
[2023-06-13] MEDS: Lactated Ringers 1,000 ML 100 ML IVCONT (13:27)
--- NOTE | 2023-06-13 13:39 | PC.NURSE ---
pt having sevre body wide tremors/shaking periodically. family at bedside witnessing events. md informed and spoke to family at bedside. per md pt could possibly have parkinsons. family requested med to treat tremors. md informed. neuro and psych consulted. pt temp 99.8 orally.
--- NOTE | 2023-06-13 15:30 | MHC.SL.SWA ---
Speech Pathologist Impression: Risk of Aspiration Due to: Neurological Condition Poor PO Intake Reduced Cognition Dysphasia Diet Status: Recommend continued NPO. Patient presents with worsening respiratory status, and evidenced clinical signs of aspiration on trial of thickest liquid consistency. REGIONAL COORDINATOR will re-attempt, if available later this pm and or tomorrow a.m. , RD, RN notified by secure text, white board in room adjusted with recommendation. REGIONAL COORDINATOR to follow. Liquid Consistency and Strategies for Safe Swallow: Liquid Intake Recommendation: NPO Liquid Intake Strategies: Small Sips Double Swallow Solid Food Consistency: Dietary Recommendations: NPO Additional Modifications to Solid Foods: Oral Medication Intake: NPO Please contact the pharmacy regarding appropriate crushable or liquid drug formulations that are available whenever modified delivery is recommended. Compensatory Strategies and Precautions to be Taken for Safe Swallow: Sitting Upright (90 deg) Supervision While Eating and Drinking for Safe Swallow: PO with REGIONAL COORDINATOR Foods to Avoid: Swallowing Recommended Treatments: Compens. Strategy Educat. Recommendation for Speech: Inpatient Speech Therapy Comment: Patient reportedly had aspiration event/became hypoxemic developed fever late yesterday p.m., was made NPO by MD with request to re-assess swallow this a.m. Patient this morning while appearing to be sleeping, producing loud stridor on inhale, had on venturi mask, lying in bed with head tilted back. Patient woke with adjustment of head of bed to 90 degrees, though continued to appear to be SOB, have stridor, maintained head tilted back. REGIONAL COORDINATOR added pillow in attempt to bring head to a more forward position. Patient was mostly non-verbal throughout the assessment, able to follow minimal directions with ample context cues. Patient presented with dry mouth, breathing with open mouth posture. Patient was initially given oral care and mouth moisture, which he was cooperative with. Patient was given tsp. amount of thickened juice to a somewhat denser Honey Thick consistency (close to pudding thick). Patient closed mouth on bolus, initiated tounge movement to propell bolus, was noted to have lengthy delay before initiating swallow, reduced laryngeal elevation on swallow, noted gurgling/upper airway noise after swallow. Patient was encouraged to cough and reswallow which he did with some effort, with airway evidencing less noise after swallow. No further trials were attempted. Frequency/Duration: Date Range for Service Req: Timeline to reassess: Trust Manager Clinican/Clinical Fellow: No Supervisory Statement: I have reviewed and agree with the student/clinical fellow's documentation: N/A Speech Language Pathologist: Mindi Ziegler M.A., CCC-REGIONAL COORDINATOR
[2023-06-13] MEDS: levoFLOXacin/D5W 750 MG/150 ML PIGGYBACK 100 MG IV (15:59)
[2023-06-13] MEDS: Morphine Sulfate 2 MG/ML CARTRIDGE 1 MG IVPUSH (16:35)
[2023-06-13] MEDS: Tamsulosin HCL 0.4 MG CAPSULE PO (20:47)
[2023-06-13] MEDS: risperiDONE 0.5 MG TABLET PO (20:47)
[2023-06-13] MEDS: risperiDONE 1 MG TABLET PO (20:47)
[2023-06-13] MEDS: Mirtazapine 7.5 MG TABLET PO (20:48)
[2023-06-14 01:25] VITALS: RESP 26; TEMP 37.8
[2023-06-14] MEDS: Lactated Ringers 1,000 ML 100 ML IVCONT ×2 (02:47→17:10)
[2023-06-14 03:44] VITALS: BP 107/57; PULSE 91; RESP 22; TEMP 36.8; O2SAT 97
[2023-06-14 07:02] LABS: Vancomycin Trough 5.9 mcg/mL (10.0-20.0)
[2023-06-14 07:05] LABS: Creatinine Clr Calc Pharmacy 68.8; Estimated Glomerular Filt Rate > 60
--- NOTE | 2023-06-14 07:18 | HE.PHANOTE ---
RE: Vanco Dosing Trough on 06/13 5.9. Increased dose to 1250mg Q12H, predicted AUC 503, predicted trough 11.2, next trough to be drawn on 06/14 @0600
[2023-06-14 07:21] VITALS: BP 110/55; PULSE 78; RESP 20; TEMP 36.3; O2SAT 88
[2023-06-14 08:10] LABS: Hematocrit 25.5 % (42.0-52.0); Hemoglobin 8.4 g/dl (14.0-18.0); Mean Corpuscular HGB Conc 32.9 g/dl (31.0-36.0); Mean Corpuscular Hemoglobin 30.1 pg (27.0-33.0); Mean Corpuscular Volume 91.4 fL (80.0-98.0); Mean Platelet Volume 10.4 fL (9.4-12.4); Platelet Count 186 X10*3/uL (160-400); Red Blood Count 2.79 X10*6/uL (4.60-5.80); Red Cell Distribution Width 14.9 % (11.0-16.0); White Blood Count 16.2 X10*3/uL (4.8-10.8)
[2023-06-14] MEDS: vancomycin HCL 1,250 MG in 0.9 % Sodium Chloride 250 ML 166.67 MG IV ×2 (09:44→19:38)
[2023-06-14] MEDS: Heparin Sodium,Porcine 5,000 UNIT/ML VIAL 5000 UNIT SUBCUT ×2 (09:46→21:18)
--- NOTE | 2023-06-14 10:58 | HO.PM.IMPN ---
Subjective Subjective Date of Service: 06/15/23 Interval History: He is more calm today, vital looks, Oxygen saturation is better, no more fever fevers have improved, WBC trending down, seems to tolerated diet overnight Review of Systems Review of Systems: Yes Unobtainable due to mental condition Physical Exam Vital Signs: Vital Signs: Last Vital Signs Temp 97.4 F 06/14/23 07:21 Pulse 78 06/14/23 07:21 Resp 20 06/14/23 07:21 BP 110/55 L 06/14/23 07:21 Pulse Ox 88 L 06/14/23 07:21 O2 Del Method Nasal Cannula 06/14/23 03:44 O2 Flow Rate 11 06/14/23 07:21 BMI result Body Mass Index 22.4 General: confused, easily aroused Resp: CTA bilateral rhocnio, normal effort at this time CVS: S1,S2,RRR GI: +BS, NT, no distention Skin: No rash Neuro: motor grossly intact Psych: appropriate affect Objective Data Active Medications Acetaminophen (Acetaminophen 325 Mg Tablet) 650 mg PO Q6H PRN PRN Reason: Pain, Mild (Pain Scale 1-3) Last Admin: 06/12/23 14:55 Dose: 650 mg Documented By: YOLANDA Acetaminophen (Acetaminophen Supp 650 Mg Supp.Rect) 650 mg NC Q6H PRN PRN Reason: Fever >100.4 Last Admin: 06/13/23 23:42 Dose: 650 mg Documented By: THUAN Amlodipine Besylate (Amlodipine Besylate 5 Mg Tablet) 5 mg PO DAILY [facility]; Protocol Last Admin: 06/14/23 09:53 Dose: Not Given Documented By: GENOVEVA Non-Admin Reason: NPO Atorvastatin Calcium (Atorvastatin Calcium 80 Mg Tablet) 80 mg PO DAILY [facility] Last Admin: 06/14/23 09:53 Dose: Not Given Documented By: GENOVEVA Non-Admin Reason: NPO Cyanocobalamin (Cyanocobalamin (Vitamin B-12) 1,000 Mcg Tablet) 1,000 mcg PO DAILY [facility] Last Admin: 06/14/23 09:51 Dose: Not Given Documented By: GENOVEVA Non-Admin Reason: NPO Docusate Sodium (Docusate Sodium 100 Mg Capsule) 100 mg PO BID PRN PRN Reason: Constipation Ferrous Sulfate (Ferrous Sulfate 324 Mg Tablet.Dr) 324 mg PO DAILY [facility] Last Admin: 06/14/23 09:51 Dose: Not Given Documented By: GENOVEVA Non-Admin Reason: NPO Heparin Sodium (Porcine) (Heparin Sodium,Porcine 5,000 Unit/Ml Vial) 5,000 unit SUBCUT Q12H [facility] Last Admin: 06/14/23 09:46 Dose: 5,000 unit Documented By: GENOVEVA Levofloxacin (Levaquin) 750 mg in 150 mls @ 100 mls/hr IV Q24H [facility] Last Infusion: 06/13/23 17:30 Dose: Infused Documented By: RAYMON Lactated Ringer's (Lr) 1,000 mls @ 100 mls/hr IVCONT .Q10H [facility] Last Infusion: 06/14/23 09:48 Dose: 0 mls/hr Documented By: GENOVEVA Vancomycin HCl 1,250 mg/ (Sodium Chloride) 250 mls @ 166.667 mls/hr IV Q12H [facility] Last Admin: 06/14/23 09:44 Dose: 166.67 mls/hr Documented By: GENOVEVA Lactulose (Lactulose 20 Gm/30 Ml Solution) 20 gm PO BID [facility] Last Admin: 06/14/23 09:51 Dose: Not Given Documented By: GENOVEVA Non-Admin Reason: NPO Lorazepam (Lorazepam 2 Mg/Ml Vial) 1 mg IVPUSH ONCE ONE Stop: 06/20/23 01:36 Mirtazapine (Mirtazapine 7.5 Mg Tablet) 7.5 mg PO BEDTIME [facility] Last Admin: 06/13/23 20:48 Dose: 7.5 mg Documented By: THUAN Multivitamins/Vitamin C (Multivitamin Tablet) 1 tab PO DAILY [facility] Last Admin: 06/14/23 09:51 Dose: Not Given Documented By: GENOVEVA Non-Admin Reason: NPO Ondansetron HCl (Ondansetron Hcl 4 Mg/2 Ml Vial) 4 mg IVPUSH Q8H PRN PRN Reason: Nausea and Vomiting Pharmacy Consult (Consult Rx Vancomycin Dosing) 1 each MISCELLANE DAILY PRN PRN Reason: Consult order Risperidone (Risperidone 0.5 Mg Tablet) 0.5 mg PO BID [facility] Last Admin: 06/14/23 09:53 Dose: Not Given Documented By: GENOVEVA Non-Admin Reason: NPO Risperidone (Risperidone 1 Mg Tablet) 1 mg PO BEDTIME [facility] Last Admin: 06/13/23 20:47 Dose: 1 mg Documented By: THUAN Senna (Sennosides 8.6 Mg Tablet) 17.2 mg PO BEDTIME PRN PRN Reason: Constipation Last Admin: 06/12/23 14:55 Dose: 17.2 mg Documented By: YOLANDA Sodium Chloride (0.9 % Sodium Chloride Flush 3 Ml Syringe) 3 ml IVFLUSH QSHIFT [facility] Last Admin: 06/14/23 07:53 Dose: Not Given Documented By: GENOVEVA Non-Admin Reason: IV Running Tamsulosin HCl (Tamsulosin Hcl 0.4 Mg Capsule) 0.4 mg PO BEDTIME [facility] Last Admin: 06/13/23 20:47 Dose: 0.4 mg Documented By: THUAN Labs 06/15/23 05:52 06/15/23 05:52 Labs: Laboratory Results - last 24 hr 06/14/23 06/14/23 05:40 07:49 MCV 91.4 MCH 30.1 MCHC 32.9 RDW 14.9 Plt Count 186 MPV 10.4 Absolute Nucleated RBC 0.000 Nucleated RBC % (auto) 0.0 Hold Purple Top SEE NOTE Estim Creat Clear Calc 68.8 Estimated GFR > 60 Vancomycin Trough 5.9 L Microbiology Microbiology Results: Microbiology 06/12/23 16:40 Blood Culture - Preliminary Blood - Venous No growth after 24 hours. 06/12/23 16:33 Blood Culture - Preliminary Blood - Venous No growth after 24 hours. Assessment and Plan (1) Failure to thrive in adult: Status: Acute (2) Dehydration: Status: Acute (3) Hypernatremia: Status: Acute (4) Altered mental status: Status: Acute Plan 77 year old male with history of cva, copd who is a former smoker, pvd on plavix, osteoporosis, hld, pulmonary sarcoidosis, trigeminal neuralgia, zion,htn, MDD admitted for further management of FTT in adult. Severe sepsis d/t aspiration pneumonia--sepsis improving, -cultures are negative thus far -Continue Levaquin and DC Vanc, given cultures negative after 48 hours , then DC Vanco -diet per speech recommendation -aspiration precaution #Failure to thrive in adult -suspect underlying parkinson's disease as noted by shuffling gait, dysphagia, rapid cognitive decline, resting tremor since february -Head CT shows redemonstration of possible NPH -neuro consult recommends LP--not able to due as IR is requesting off Plavix for 5 days, last dose june 09 -pt/ot eval before dc -psychiatry consult, though per [facility]iatrist Dr. Rico, pt is not appropriate for return to psychiatric facility -Neuro recommends trial of Sinemet / pm #Dysphagia--ongoing assessment by speech and presently on puree+pudding thick liquid #Acute hyperosmolar hypernatremia due to dehydration--resolved with IVF #Acute kidney injury--d/t dehydration, resolved with IVF HypOkalemia--replace with IV and PO K, and resolved # mild hyperchloremic metabolic acidosis--bicab stable at about 20, monitor #NPH -ventriculomegaly redemonstrated on head ct -neuro eval -LP per neuro recommendation, but not able to do until 5 days of Plavix, last dose june 09, will schedule shravan 06/16 #HTN -continue amlodipine if able to swallow #PVD -continue plavix (hold) for LP, statin #copd -no exacerbation -albuterol prn -O2 as needed #Mood disorder -pt on 1:1 at facility due to instability/fall risk, not si -continue remeron, risperidone #BPH -continue tamsulosin dvt prophylaxis- heparin Goals of care discussed with on 06/11 and patient is now DNR/DNI pt requires inpt stay due to failure to thrive with kishor and hypERnatremia due to dehydration requiring ivf ,monitoring or renal function, lytes, and expert consultation. pt will also likely require further advanced care planning pending clinical course Care discussed with at bedside today, Quality Stroke Does the patient have a stroke diagnosis?: No VTE Prior VTE?: No VTE Risk Level:: Medical - moderate - high VTE Device Contraindication: Treatment Not Indicated VTE Drug Contraindication: N/A - Med Ordered
--- NOTE | 2023-06-14 11:10 | MHC.SL.SWA ---
Risk of Aspiration Due to: Neurological Condition Poor PO Intake Reduced Cognition Dysphasia Diet Status: NPO Liquid Consistency and Strategies for Safe Swallow: Liquid Intake Recommendation: NPO Solid Food Consistency: Dietary Recommendations: NPO Oral Medication Intake: NPO Please contact the pharmacy regarding appropriate crushable or liquid drug formulations that are available whenever modified delivery is recommended. Supervision While Eating and Drinking for Safe Swallow: PO with MICROBIOLOGY DIRECTOR Swallowing Recommended Treatments: Compens. Strategy Educat. Recommendation for Speech: Inpatient Speech Therapy Comment: Patient not responsive to PO trials which had to be manually removed/suctioned. Recommend continue NPO. Provide patient with frequent oral care for comfort. MICROBIOLOGY DIRECTOR to continue to follow. Ski Edge Painter Clinican/Clinical Fellow: No Supervisory Statement: I have reviewed and agree with the student/clinical fellow's documentation: N/A Speech Language Pathologist: Elisha Figueredo M.A., [facility]-MICROBIOLOGY DIRECTOR
[2023-06-14 11:31] LABS: Anion Gap 16 (12-20)
[2023-06-14 11:34] LABS: Blood Urea Nitrogen 15 mg/dL (9-16); Calcium 7.9 mg/dL (8.4-10.2); Carbon Dioxide 19 mmol/L (22-29); Chloride 112 mmol/L (96-108); Glucose Random 66 mg/dL (60-115); Potassium 3.7 mmol/L (3.3-5.1); Sodium 143 mmol/L (135-145)
[2023-06-14 11:39] VITALS: BMI 22.4
--- NOTE | 2023-06-14 11:57 | MHC.CLN ---
NUTRITION NPO PER OPERATIONAL COMMUNICATION CHIEF EVAL. RECEIVING IV FLUIDS. REPORTS DECLINE IN INTAKE SINCE 03/09. REPORTS WEIGHT RANGE 125-130#. BEDSCALE=65 KG. SUSPECT ERROR IN THAT WEIGHT. USED CWPWMV=092#, 59 KG TO CALCULATE NUTRITIONAL NEEDS. QUALIFIES MODERATELY MALNOURISHED IN THE CONTEXT OF CHRONIC ILLNESS. FOLLOW FOR DIET ADVANCEMENT. CONSIDER ALTERNATE NUTRITION IF APPROPRIATE. SEE CLINICAL NUTRITION ASSESSMENT 06/14/23.
--- NOTE | 2023-06-14 13:42 | MHC.CM.PN ---
EMR REVIEWED AND PER MD ROUNDS, PT IS NOT MEDICALLY CLEARED FOR DC (HYPOXIA, ELEVATED WBC) CM WILL CONTINUE TO FOLLOW FOR ANY CHANGE IN DC NEEDS/PLAN.
[2023-06-14 15:19] VITALS: BP 113/56; PULSE 66; RESP 18; TEMP 36.5; O2SAT 97
--- NOTE | 2023-06-14 15:31 | PM.NEUROCN ---
History of Present Illness Data of Consult Service Date: 06/14/23 Primary Care Provider: Brad Russell MD [facility] Reason for consult: Tremor 77 years old man who was recently seen by Neurology. I was asked to see him again for tremor. He was unable to provide any significant history and was mostly mumbling. Review of Systems Review of Systems: Could not be done with [facility] Past Medical History Medical History Pulmonary sarcoidosis CVA (cerebral vascular accident) KB (iron deficiency anemia) Osteoporosis Trigeminal neuralgia Former smoker COPD (chronic obstructive pulmonary disease) PVD (peripheral vascular disease) HLD (hyperlipidemia) HTN (hypertension) Social History Social History Household Members: Unknown / Unable to assess Housing: Halfway Patient Tobacco Use Status: Never used Tobacco service: No Meds Allergies Allergy/AdvReac Type Severity Reaction Status Date / Time ceftriaxone [From Rocephin] AdvReac Unknown Verified 06/10/23 17:08 diphenhydramine AdvReac Unknown Verified 06/10/23 17:08 [From Benadryl] Active Medications: Current Medications Acetaminophen (Acetaminophen 325 Mg Tablet) 650 mg PO Q6H PRN PRN Reason: Pain, Mild (Pain Scale 1-3) Last Admin: 06/12/23 14:55 Dose: 650 mg Acetaminophen (Acetaminophen Supp 650 Mg Supp.Rect) 650 mg ME Q6H PRN PRN Reason: Fever >100.4 Last Admin: 06/13/23 23:42 Dose: 650 mg Amlodipine Besylate (Amlodipine Besylate 5 Mg Tablet) 5 mg PO DAILY [facility]; Protocol Last Admin: 06/14/23 09:53 Dose: Not Given Atorvastatin Calcium (Atorvastatin Calcium 80 Mg Tablet) 80 mg PO DAILY [facility] Last Admin: 06/14/23 09:53 Dose: Not Given Cyanocobalamin (Cyanocobalamin (Vitamin B-12) 1,000 Mcg Tablet) 1,000 mcg PO DAILY [facility] Last Admin: 06/14/23 09:51 Dose: Not Given Docusate Sodium (Docusate Sodium 100 Mg Capsule) 100 mg PO BID PRN PRN Reason: Constipation Ferrous Sulfate (Ferrous Sulfate 324 Mg Tablet.) 324 mg PO DAILY [facility] Last Admin: 06/14/23 09:51 Dose: Not Given Heparin Sodium (Porcine) (Heparin Sodium,Porcine 5,000 Unit/Ml Vial) 5,000 unit SUBCUT Q12H [facility] Last Admin: 06/14/23 09:46 Dose: 5,000 unit Levofloxacin (Levaquin) 750 mg in 150 mls @ 100 mls/hr IV Q24H [facility] Last Infusion: 06/13/23 17:30 Dose: Infused Lactated Ringer's (Lr) 1,000 mls @ 100 mls/hr IVCONT .Q10H [facility] Last Infusion: 06/14/23 11:54 Dose: 100 mls/hr Vancomycin HCl 1,250 mg/ (Sodium Chloride) 250 mls @ 166.667 mls/hr IV Q12H [facility] Last Infusion: 06/14/23 11:54 Dose: Infused Lactulose (Lactulose 20 Gm/30 Ml Solution) 20 gm PO BID [facility] Last Admin: 06/14/23 09:51 Dose: Not Given Lorazepam (Lorazepam 2 Mg/Ml Vial) 1 mg IVPUSH ONCE ONE Stop: 06/20/23 01:36 Mirtazapine (Mirtazapine 7.5 Mg Tablet) 7.5 mg PO BEDTIME [facility] Last Admin: 06/13/23 20:48 Dose: 7.5 mg Multivitamins/Vitamin C (Multivitamin Tablet) 1 tab PO DAILY [facility] Last Admin: 06/14/23 09:51 Dose: Not Given Ondansetron HCl (Ondansetron Hcl 4 Mg/2 Ml Vial) 4 mg IVPUSH Q8H PRN PRN Reason: Nausea and Vomiting Pharmacy Consult (Consult Rx Vancomycin Dosing) 1 each MISCELLANE DAILY PRN PRN Reason: Consult order Risperidone (Risperidone 0.5 Mg Tablet) 0.5 mg PO BID [facility] Last Admin: 06/14/23 09:53 Dose: Not Given Risperidone (Risperidone 1 Mg Tablet) 1 mg PO BEDTIME [facility] Last Admin: 06/13/23 20:47 Dose: 1 mg Senna (Sennosides 8.6 Mg Tablet) 17.2 mg PO BEDTIME PRN PRN Reason: Constipation Last Admin: 06/12/23 14:55 Dose: 17.2 mg Sodium Chloride (0.9 % Sodium Chloride Flush 3 Ml Syringe) 3 ml IVFLUSH QSHIFT [facility] Last Admin: 06/14/23 07:53 Dose: Not Given Tamsulosin HCl (Tamsulosin Hcl 0.4 Mg Capsule) 0.4 mg PO BEDTIME [facility] Last Admin: 06/13/23 20:47 Dose: 0.4 mg Home Medications Medication Instructions Recorded Confirmed Last Taken Type amlodipine 5 mg tablet 5 mg PO DAILY 05/24/23 06/10/23 05/24/23 History clopidogrel 75 mg tablet 75 mg PO DAILY 05/24/23 06/10/23 05/24/23 History cyanocobalamin (vitamin B-12) 500 1,000 mcg PO DAILY 05/24/23 06/10/23 05/24/23 History mcg tablet ferrous gluconate 324 mg (38 mg 324 mg PO DAILY 05/24/23 06/10/23 05/24/23 History iron) tablet multivitamin 1 tab PO DAILY 05/24/23 06/10/23 05/24/23 History tamsulosin 0.4 mg capsule 0.4 mg PO BEDTIME 05/24/23 06/10/23 05/23/23 History atorvastatin 80 mg tablet 80 mg PO DAILY 06/10/23 06/10/23 Unknown History calcium carbonate 600 mg-vitamin 1 tab PO TID 06/10/23 06/10/23 Unknown History D3 5 mcg (200 unit) tablet (Calcium 600 + D(3)) docusate sodium 100 mg tablet 100 mg PO BID PRN Constipation 06/10/23 06/10/23 Unknown History lactulose 20 gram/30 mL oral 20 g PO BID 06/10/23 06/10/23 Unknown History solution mirtazapine 7.5 mg tablet 7.5 mg PO BEDTIME 06/10/23 06/10/23 Unknown History risperidone 0.5 mg tablet 0.5 mg PO BID 06/10/23 06/10/23 Unknown History risperidone 1 mg tablet 1 mg PO BEDTIME 06/10/23 06/10/23 Unknown History Physical Exam Vital Signs: Vital Signs: Last Vital Signs Temp 97.7 F 06/14/23 15:19 Pulse 66 06/14/23 15:19 Resp 18 06/14/23 15:19 BP 113/56 L 06/14/23 15:19 Pulse Ox 97 06/14/23 15:19 O2 Del Method Nasal Cannula 06/14/23 03:44 O2 Flow Rate 97 06/14/23 15:19 BMI result Body Mass Index 22.4 Neuro: Other: [id number] bilateral hand resting and postural tremor with moderate frontal type and cogwheeling type rigidity in upper extremities with decreased facial expression blinking. Speech was dysphasic with mumbling. Results Labs 06/14/23 07:49 06/14/23 05:40 Labs: Short CBC 06/14/23 Range/Units 07:49 WBC 16.2 H (4.8-10.8) X10*3/uL Hgb 8.4 L (14.0-18.0) g/dl Hct 25.5 L (42.0-52.0) % Plt Count 186 (160-400) X10*3/uL BMP 06/14/23 05:40 Sodium 143 Potassium 3.7 Chloride 112 H Carbon Dioxide 19 L BUN 15 Creatinine 0.80 Calcium 7.9 L Microbiology Microbiology Results: Microbiology 06/12/23 16:40 Blood - Venous Blood Culture - Preliminary No growth after 24 hours. 06/12/23 16:33 Blood - Venous Blood Culture - Preliminary No growth after 24 hours. Assessment and Plan (1) Dementia with Lewy bodies: Qualifiers: Dementia severity: moderate Dementia behavioral or psychological symptom: with other behavioral disturbance Qualified Code(s): G31.83 - Neurocognitive disorder with Lewy bodies; F02.B18 - Dementia in other diseases classified elsewhere, moderate, with other behavioral disturbance Status: Acute His overall clinical picture is suggestive of dementia with Lewy bodies and is recent worsening or encephalopathy likely was due to medical reasons and dehydration. In this type of patients tremor and parkinsonian features are not uncommon. They do not respond to medicine as well as typical Parkinson's patient. I would suggest trying carbidopa levodopa 2500 3 times a day and if that would not work amantadine 100 mg twice a day. Carbidopa levodopa can be given at 07:00, 11:00 and 15:00. If amantadine is tried, give him in the morning and at noon time. Response to these medicines should be clear within today. If mental status worsened and no physical improvement occur, medicine should be withdrawn. Procedures Date of Service Date of Service: 06/14/23
--- NOTE | 2023-06-14 16:12 | MHC.SL.SWA ---
Risk of Aspiration Due to: Neurological Condition Poor PO Intake Reduced Cognition Dysphasia Diet Status: UPGRADE Liquid Consistency and Strategies for Safe Swallow: Liquid Intake Recommendation: Pudding Thick Liquid Intake Strategies: No Straws Liquids by Teaspoon Only Solid Food Consistency: Dietary Recommendations: Pureed (NDD1) Oral Medication Intake: Crushed with Puree Please contact the pharmacy regarding appropriate crushable or liquid drug formulations that are available whenever modified delivery is recommended. Compensatory Strategies and Precautions to be Taken for Safe Swallow: Sitting Upright (90 deg) No Straw Liquids from Spoon Small Bites and Sips Alternate Liquids/Solids Oral Check Supervision While Eating and Drinking for Safe Swallow: Total Assistance (1:1) Swallowing Recommended Treatments: Compens. Strategy Educat. Recommendation for Speech: Inpatient Speech Therapy Comment: Recommend UPGRADE to PUREE solids and PUDDING THICK liquids (via TEASPOON ONLY). Continue to recommend frequent oral care and aspiration precautions. Requires 1-1 feed. Discontinue PO if patient presenting w/ wet vocal quality that doesn't clear or desaturation during feeding. Recommend MANUFACTURING PLANT MANAGER to continue to follow for dysphagia tx/re-eval and to monitor/screen speech for dysarthria. Patient would benefit from continued dysphagia tx if patient's diet has not returned to baseline prior to d/c. Production Painter Clinican/Clinical Fellow: No Supervisory Statement: I have reviewed and agree with the student/clinical fellow's documentation: N/A Speech Language Pathologist: Elisha Figueredo M.A., [facility]-MANUFACTURING PLANT MANAGER
[2023-06-14] MEDS: Carbidopa/Levodopa 25/100 TABLET 1 TAB PO (16:57)
[2023-06-14] MEDS: levoFLOXacin/D5W 750 MG/150 ML PIGGYBACK 100 MG IV (17:04)
--- NOTE | 2023-06-14 18:37 | PC.NURSE ---
Drowsy in the morning, unable to administer PO meds, patient was reassessed by speech in the afternoon and diet was advanced to pureed. Patient was not tolerating PO, took small bites of applesauce but refused to eat any part of dinner
[2023-06-14 19:22] VITALS: BP 108/55; PULSE 78; RESP 16; TEMP 36.4; O2SAT 93
[2023-06-15 03:17] VITALS: BP 130/58; PULSE 86; RESP 20; TEMP 36.8; O2SAT 95
[2023-06-15] MEDS: Lactated Ringers 1,000 ML 100 ML IVCONT (05:21)
[2023-06-15 06:04] LABS: Hematocrit 23.4 % (42.0-52.0); Hemoglobin 7.7 g/dl (14.0-18.0); Mean Corpuscular HGB Conc 32.9 g/dl (31.0-36.0); Mean Corpuscular Hemoglobin 29.6 pg (27.0-33.0); Mean Platelet Volume 10.1 fL (9.4-12.4); Platelet Count 203 X10*3/uL (160-400); Red Cell Distribution Width 15.2 % (11.0-16.0); White Blood Count 13.4 X10*3/uL (4.8-10.8)
[2023-06-15 06:21] LABS: Creatinine Clr Calc Pharmacy 71.5; Estimated Glomerular Filt Rate > 60
[2023-06-15 06:22] LABS: Anion Gap 14 (12-20); Blood Urea Nitrogen 15 mg/dL (9-16); Calcium 7.9 mg/dL (8.4-10.2); Carbon Dioxide 20 mmol/L (22-29); Chloride 111 mmol/L (96-108); Creatinine Clr Calc Pharmacy 72.4; Estimated Glomerular Filt Rate > 60; Glucose Random 85 mg/dL (60-115); Potassium 3.4 mmol/L (3.3-5.1); Sodium 142 mmol/L (135-145)
[2023-06-15 07:29] VITALS: BP 144/65; PULSE 80; RESP 20; TEMP 36.7; O2SAT 99
--- NOTE | 2023-06-15 07:40 | HE.PHANOTE ---
LEVEL INCREASED FROM 5.9 TO 20 DOSE HAD BEEN INCREASED FROM 750 Q12 TO 1250 MG Q 12 WILL HOLD MORNING DOSE AND CHECK ANOTHER LEVEL TONIGHT
[2023-06-15] MEDS: risperiDONE 0.5 MG TABLET PO ×2 (08:36→20:42)
[2023-06-15] MEDS: amLODIPine Besylate 5 MG TABLET PO (08:37)
[2023-06-15] MEDS: Ferrous Sulfate 324 MG TABLET.DR PO (08:37)
[2023-06-15] MEDS: Cyanocobalamin (Vitamin B-12) 1,000 MCG TABLET 1000 MCG PO (08:37)
[2023-06-15] MEDS: Atorvastatin Calcium 80 MG TABLET PO (08:37)
[2023-06-15] MEDS: Carbidopa/Levodopa 25/100 TABLET 1 TAB PO ×3 (08:37→15:48)
[2023-06-15] MEDS: Multivitamin TABLET 1 TAB PO (08:37)
[2023-06-15] MEDS: Heparin Sodium,Porcine 5,000 UNIT/ML VIAL 5000 UNIT SUBCUT ×2 (11:55→21:15)
[2023-06-15 15:23] VITALS: BP 128/62; PULSE 82; RESP 20; TEMP 36.6; O2SAT 98
[2023-06-15] MEDS: levoFLOXacin/D5W 750 MG/150 ML PIGGYBACK 100 MG IV (15:48)
[2023-06-15] MEDS: 0.9 % Sodium Chloride Flush 3 ML SYRINGE IVFLUSH ×2 (15:52→20:55)
[2023-06-15 19:44] VITALS: BP 151/69; PULSE 89; RESP 20; TEMP 36.7; O2SAT 97
[2023-06-15] MEDS: Lactulose 20 GM/30 ML SOLUTION PO (20:42)
[2023-06-15] MEDS: Tamsulosin HCL 0.4 MG CAPSULE PO (20:42)
[2023-06-15] MEDS: risperiDONE 1 MG TABLET PO (20:42)
[2023-06-15] MEDS: Mirtazapine 7.5 MG TABLET PO (20:42)
[2023-06-16] MEDS: Acetaminophen 325 MG TABLET 650 MG PO (03:27)
[2023-06-16 03:47] VITALS: BP 131/60; PULSE 84; RESP 20; TEMP 36.6; O2SAT 98
[2023-06-16] MEDS: Carbidopa/Levodopa 25/100 TABLET 1 TAB PO ×3 (06:25→15:58)
[2023-06-16 07:04] VITALS: BP 122/68; PULSE 78; RESP 16; TEMP 36.6; O2SAT 97
--- NOTE | 2023-06-16 08:17 | P.PNIM_ITS ---
Subjective Subjective Date of Service: 06/16/23 Interval History: F/u on altered mental status, encephalopathy, aspiration pneumonia Overall has improved but seems more confused this morning with some agiation, mumbling speech unchanged Review of Systems Review of Systems: Yes Unobtainable due to mental condition Physical Exam 2 Vital Signs: Vital Signs: Last Vital Signs Temp 97.9 F 06/16/23 07:04 Pulse 78 06/16/23 07:04 Resp 16 06/16/23 07:04 BP 122/68 06/16/23 07:04 Pulse Ox 97 06/16/23 07:04 O2 Del Method Nasal Cannula 06/16/23 07:04 O2 Flow Rate 7 06/16/23 07:04 BMI result Body Mass Index 22.4 General: awake alert, confused, mumbling speech hard to understand Resp: CTA bilateral rhocnio, normal effort at this time CVS: S1,S2,RRR GI: +BS, NT, no distention Skin: No rash Neuro: motor grossly intact, does have mild resting tremorrs in the hand Psych: flat affect Objective Data Active Medications Acetaminophen (Acetaminophen 325 Mg Tablet) 650 mg PO Q6H PRN PRN Reason: Pain, Mild (Pain Scale 1-3) Last Admin: 06/16/23 03:27 Dose: 650 mg Documented By: DELBERT Acetaminophen (Acetaminophen Supp 650 Mg Supp.Rect) 650 mg RI Q6H PRN PRN Reason: Fever >100.4 Last Admin: 06/13/23 23:42 Dose: 650 mg Documented By: THUAN Amlodipine Besylate (Amlodipine Besylate 5 Mg Tablet) 5 mg PO DAILY [facility]; Protocol Last Admin: 06/15/23 08:37 Dose: 5 mg Documented By: GENOVEVA Atorvastatin Calcium (Atorvastatin Calcium 80 Mg Tablet) 80 mg PO DAILY [facility] Last Admin: 06/15/23 08:37 Dose: 80 mg Documented By: GENOVEVA Carbidopa/Levodopa (Carbidopa/Levodopa 25/100 Tablet) 1 tab PO TID@0700,1100,1500 [facility] Last Admin: 06/16/23 06:25 Dose: 1 tab Documented By: DELBERT Cyanocobalamin (Cyanocobalamin (Vitamin B-12) 1,000 Mcg Tablet) 1,000 mcg PO DAILY [facility] Last Admin: 03/30/24 08:37 Dose: 1,000 mcg Documented By: GENOVEVA Docusate Sodium (Docusate Sodium 100 Mg Capsule) 100 mg PO BID PRN PRN Reason: Constipation Ferrous Sulfate (Ferrous Sulfate 324 Mg Tablet.) 324 mg PO DAILY [facility] Last Admin: 06/15/23 08:37 Dose: 324 mg Documented By: GENOVEVA Heparin Sodium (Porcine) (Heparin Sodium,Porcine 5,000 Unit/Ml Vial) 5,000 unit SUBCUT Q12H [facility] Last Admin: 06/15/23 21:15 Dose: 5,000 unit Documented By: DELBERT Levofloxacin (Levaquin) 750 mg in 150 mls @ 100 mls/hr IV Q24H [facility] Last Infusion: 06/15/23 17:26 Dose: Infused Documented By: JOSE ANGEL Lactulose (Lactulose 20 Gm/30 Ml Solution) 20 gm PO BID [facility] Last Admin: 06/15/23 20:42 Dose: 20 gm Documented By: DELBERT Mirtazapine (Mirtazapine 7.5 Mg Tablet) 7.5 mg PO BEDTIME [facility] Last Admin: 06/15/23 20:42 Dose: 7.5 mg Documented By: DELBERT Multivitamins/Vitamin C (Multivitamin Tablet) 1 tab PO DAILY [facility] Last Admin: 06/15/23 08:37 Dose: 1 tab Documented By: GENOVEVA Ondansetron HCl (Ondansetron Hcl 4 Mg/2 Ml Vial) 4 mg IVPUSH Q8H PRN PRN Reason: Nausea and Vomiting Pharmacy Consult (Consult Rx Vancomycin Dosing) 1 each MISCELLANE DAILY PRN PRN Reason: Consult order Risperidone (Risperidone 0.5 Mg Tablet) 0.5 mg PO BID [facility] Last Admin: 06/15/23 20:42 Dose: 0.5 mg Documented By: DELBERT Risperidone (Risperidone 1 Mg Tablet) 1 mg PO BEDTIME [facility] Last Admin: 06/15/23 20:42 Dose: 1 mg Documented By: DELBERT Senna (Sennosides 8.6 Mg Tablet) 17.2 mg PO BEDTIME PRN PRN Reason: Constipation Last Admin: 06/12/23 14:55 Dose: 17.2 mg Documented By: YOLANDA Sodium Chloride (0.9 % Sodium Chloride Flush 3 Ml Syringe) 3 ml IVFLUSH QSHIFT [facility] Last Admin: 06/15/23 20:55 Dose: 3 ml Documented By: DELBERT Tamsulosin HCl (Tamsulosin Hcl 0.4 Mg Capsule) 0.4 mg PO BEDTIME [facility] Last Admin: 06/15/23 20:42 Dose: 0.4 mg Documented By: DELBERT Labs 06/15/23 05:52 06/15/23 05:52 Assessment and Plan (1) Failure to thrive in adult: Status: Acute (2) Dehydration: Status: Acute (3) Hypernatremia: Status: Acute (4) Altered mental status: Status: Acute Plan 77 year old male with history of cva, copd who is a former smoker, pvd on plavix, osteoporosis, hld, pulmonary sarcoidosis, trigeminal neuralgia, zion,htn, MDD admitted for further management of FTT in adult. #Severe sepsis d/t aspiration pneumonia--sepsis improving, -cultures are negative thus far -Continue Levaquin and DC Vanc, given cultures negative after 48 hours , then DC Vanco -diet per speech recommendation -aspiration precaution #Failure to thrive in adult -suspect underlying parkinson's disease as noted by shuffling gait, dysphagia, rapid cognitive decline, resting tremor since february -Head CT shows redemonstration of possible NPH -neuro consult recommends LP--not able to due as IR is requesting off Plavix for 5 days, last dose june 09 -pt/ot eval before dc -psychiatry consult, though per [place] [facility]rist Dr. Rico, pt is not appropriate for return to psychiatric facility -Neuro recommends trial of Sinemet 7a//3 pm for possible parkinson and watch for side effect #Dysphagia--ongoing assessment by speech and presently on puree+pudding thick liquid #Acute hyperosmolar hypernatremia due to dehydration--resolved with IVF #Acute kidney injury--d/t dehydration, resolved with IVF HypOkalemia--replace with IV and PO K, and resolved # mild hyperchloremic metabolic acidosis--bicab stable at about 20, monitor #?NPH -ventriculomegaly redemonstrated on head ct -neuro eval -LP per neuro recommendation, but not able to do until 5 days of Plavix, last dose june 09, will schedule shravan 06/16 #HTN -continue amlodipine if able to swallow #PVD -continue plavix (hold) for LP, statin #copd -no exacerbation -albuterol prn -O2 as needed #Mood disorder -pt on 1:1 at facility due to instability/fall risk, not si -continue remeron, risperidone #BPH -continue tamsulosin dvt prophylaxis- heparin Goals of care discussed with on 06/11 and patient is now DNR/DNI pt requires inpt stay due to failure to thrive with kishor and hypERnatremia due to dehydration requiring ivf ,monitoring or renal function, lytes, and expert consultation. pt will also likely require further advanced care planning pending clinical course Care discussed with at bedside today, Quality Stroke Does the patient have a stroke diagnosis?: No VTE Prior VTE?: No VTE Risk Level:: Medical - moderate - high VTE Device Contraindication: Treatment Not Indicated VTE Drug Contraindication: N/A - Med Ordered
[2023-06-16] MEDS: Ferrous Sulfate 324 MG TABLET.DR PO (08:23)
[2023-06-16] MEDS: Atorvastatin Calcium 80 MG TABLET PO (08:23)
[2023-06-16] MEDS: amLODIPine Besylate 5 MG TABLET PO (08:23)
[2023-06-16] MEDS: risperiDONE 0.5 MG TABLET PO ×2 (08:23→19:55)
[2023-06-16] MEDS: Lactulose 20 GM/30 ML SOLUTION PO ×2 (08:23→19:54)
[2023-06-16] MEDS: Cyanocobalamin (Vitamin B-12) 1,000 MCG TABLET 1000 MCG PO (08:23)
[2023-06-16] MEDS: 0.9 % Sodium Chloride Flush 3 ML SYRINGE IVFLUSH ×4 (08:23→19:54)
[2023-06-16] MEDS: Multivitamin TABLET 1 TAB PO (08:23)
[2023-06-16] MEDS: Heparin Sodium,Porcine 5,000 UNIT/ML VIAL 5000 UNIT SUBCUT ×2 (09:32→20:00)
[2023-06-16 12:37] LABS: Anion Gap 14 (12-20); Blood Urea Nitrogen 15 mg/dL (9-16); Calcium 7.9 mg/dL (8.4-10.2); Carbon Dioxide 20 mmol/L (22-29); Chloride 112 mmol/L (96-108); Creatinine Clr Calc Pharmacy 83.4; Estimated Glomerular Filt Rate > 60; Glucose Random 92 mg/dL (60-115); Potassium 3.2 mmol/L (3.3-5.1); Sodium 143 mmol/L (135-145)
[2023-06-16 15:09] VITALS: BP 128/59; PULSE 79; RESP 15; TEMP 37; O2SAT 98
[2023-06-16] MEDS: Potassium Chloride Packet 20 MEQ PACKET 40 MEQ PO (15:58)
[2023-06-16] MEDS: levoFLOXacin/D5W 750 MG/150 ML PIGGYBACK 100 MG IV (15:58)
[2023-06-16] MEDS: Mirtazapine 7.5 MG TABLET PO (19:55)
[2023-06-16] MEDS: Tamsulosin HCL 0.4 MG CAPSULE PO (19:55)
[2023-06-16] MEDS: risperiDONE 1 MG TABLET PO (19:55)
[2023-06-16 20:00] VITALS: BP 171/67; PULSE 93; RESP 16; TEMP 37.2; O2SAT 94
[2023-06-17 03:24] VITALS: BP 147/64; PULSE 69; RESP 16; TEMP 36.8; O2SAT 100
[2023-06-17] MEDS: Carbidopa/Levodopa 25/100 TABLET 1 TAB PO (05:46)
[2023-06-17 06:10] LABS: Creatinine Clr Calc Pharmacy 74.4; Estimated Glomerular Filt Rate > 60
--- NOTE | 2023-06-17 07:18 | P.DN_ITS ---
Discharge Sum: Prov Provider Primary care physician: Brad Russell MD Consults: 06/10/23 21:27 Consult to Neurology Routine Consulting Provider: [facility] Reason for consultation: ftt, concern for parkinsons 06/12/23 11:21 Consult to Psychiatry Stat Consulting Provider: Psych [facility] Reason for consultation: psychiatric decompensation Has provider been notified: No 06/13/23 12:21 Consult to Neurology Routine Consulting Provider: [facility] Reason for consultation: Tremors ? osmar ? need fo med management Discharge Sum: Diag Contributing Factors (1) Failure to thrive in adult: (2) Dehydration: (3) Hypernatremia: (4) Altered mental status: Discharge Sum: Summary Date and Time Date of admission: 06/10/23 21:21 Date of : 06/17/23 Time of : 07:10 Summary Details: Chief Complaint: ftt 77 year old male with history of cva, copd who is a former smoker, pvd on plavix, osteoporosis, hld, pulmonary sarcoidosis, trigeminal neuralgia, zion,htn, MDD presents to the ED earlier today from [facility] where is he has been residing since 04/24 due to depression/si but over the last few weeks has not been ambulating, eating, or drinking. Pt is unable to provide meaningful history and has poor insight and judgement. The patient states he cannot eat or drink nor can he be admitted to the hospital due to not having insurance or money. Per Luz mendoza, who is at bedside, the patient has been reporting this at the facility as well. He was ambulating on admission to [facility] and is now a 3 person assist noted to have shuffling gait. The patient has been noted to have episodes of dysphagia and there has been concerns about pt aspirating per aide. There have been no fevers or cough reported. There is no health care proxy documented on final, but ed provider did discuss case with patient's , Antonia, who agrees with admission and reports patient is a full code. Ed provider also discussed case with [facility] psychiatry, Dr. Rico who is concerned for rapid cognitive decline and Parkinson's and recommended transfer to our facility on [address] and also does not feel the patient is appropriate to return to [facility]. On arrival, VSS. There is a mild leukocytosis 11.7, normocytic anemia with h/h 10.3/31.4%. Initial creat 1.16, (baseline 0.82), BUN 42. Na 151, chloride 111, lytes otherwise normal. Given 1L IV NS with improvement in creat to 0.87, sodium 150, cl 114. UA with elevated SG, otherwise unremarkable. Negative covid, flu, rsv. Head CT shows redemonstrated ventriculomegaly suggestive of NPH but negative for acute intracranial abnormality. Pt will be admitted for further management and evaluation of FTT in adult. Hospial course: The patient presented from a psychiatric facility with adult failure to thrive. He had been treated at the facility since April for depression and was be coming increasingly weak, unable to walk, eat, or drink, and showed poor judgment. He was found to be dehydrated and had acute kidney insufficiency and hypernatremia. A CT scan of the head showed enlarged ventricles, raising concerns for NPH, for which he was scheduled to see a neurosurgeon at a later time. Upon admission, he was hydrated, and his dehydration and hypernatremia resolved. Initially NPO, he was later assessed by speech therapy and started on a diet which he initially tolerated. However, he later suffered an aspiration event on 06/11 (not while eating), became hypoxic, developed a fever, increased WBC count, and lactic acidosis, and was found to have pneumonia, with his clinical presentation consistent with severe sepsis due to aspiration pneumonia. He was started on broad-spectrum antibiotics and responded well to treatment. He was assessed by neurology with a recommendation for LP to aid in the diagnosis of NPH. Unfortunately, the LP needed to be delayed due to the use of Plavix, which IR requires to be on hold for at least 5 days. Neurology further recommended a trial of Sinemet for concern of possible Parkinson's disease. The patient seemed to have been progressing well. Unfortunately, on the morning of June 17, 2023, he became suddenly unresponsive without any prodromal distress or issues in the hour preceding this. Upon further evaluation, he had no pulse, no lung sounds, no response to painful stimuli, dilated and fixed pupils, and ECG confirmed asystole; he likely suffered an acute cardiac event. His was notified over the phone. He was DNR/DNI. He was pronounced on June 17, 2023 at 7:10 AM Final diagnoses: Severe sepsis aspiration pneumonia- Failure to thrive in adult Metabolic Encephalopathy Dysphagia Hypernatremia Acute Kidney injury Hypokalemia Additional Data Attending physician: Paul Kay MD
--- NOTE | 2023-06-17 07:53 | PC.NURSE ---
During shift report staff SEWING PATTERN LAYOUT TECHNICIAN alerted this RN and bilingual middle school teacher RN patient appeared to breathless. This RN assessed pt. Alerted MD Kay to come to bedside. pronounced time of at 0710. notified family.
== END 2023-06-17 09:49 | disposition expired | DRG 56 ==
LOC: HO.ED 20:14 → HO.EDOVER 21:28 → HO.S3 06-12 20:02
PROVIDERS: Student in an Organized Health Care Education/Training Program; Admitting Provider Physician Assistant; Emergency Provider Student in an Organized Health Care Education/Training Program; PCP Internal Medicine; Visit Provider Internal Medicine
DX: G20.A1 Parkinson's disease without dyskinesia, without mention of fluctuations (principal); A41.9 Sepsis, unspecified organism; E43 Unspecified severe protein-calorie malnutrition; J96.01 Acute respiratory failure with hypoxia; R65.20 Severe sepsis without septic shock; J69.0 Pneumonitis due to inhalation of food and vomit; F02.B18 Dementia in other diseases classified elsewhere, moderate, with other behavioral disturbance; G91.2 (Idiopathic) normal pressure hydrocephalus; N17.9 Acute kidney failure, unspecified; E86.0 Dehydration; G31.83 Neurocognitive disorder with Lewy bodies; J44.9 Chronic obstructive pulmonary disease, unspecified; D64.9 Anemia, unspecified; Z66 Do not resuscitate; F32.9 Major depressive disorder, single episode, unspecified; I73.9 Peripheral vascular disease, unspecified; N40.0 Benign prostatic hyperplasia without lower urinary tract symptoms; E87.6 Hypokalemia; R13.10 Dysphagia, unspecified; R62.7 Adult failure to thrive; I10 Essential (primary) hypertension; E88.A Wasting disease (syndrome) due to underlying condition; Z20.822 Contact with and (suspected) exposure to COVID-19; Z87.891 Personal history of nicotine dependence; Z68.22 Body mass index [BMI] 22.0-22.9, adult; Z79.02 Long term (current) use of antithrombotics/antiplatelets; Z79.899 Other long term (current) drug therapy
CPT/HCPCS: 0241U; 36415; 70450; 71045; 80048; 80053; 80202; 81001; 82565; 82947; 83605; 83735; 83880; 85025; 85027; 85610; 87040; 92526; 92610; 92950; 93005; 97162; 99285; J0131; J1644; J1956; J2270; J3010; J3370; J3371; J3480; J7120

== ENCOUNTER → 2023-06-10 17:04 | Outpatient (BNV) | payer MEDICARE, OTHER, SELFPAY | PROVIDERS: Admitting Provider Physician Assistant; Emergency Provider Student in an Organized Health Care Education/Training Program; PCP Internal Medicine; Visit Provider Internal Medicine Cardiovascular Disease | DX: R41.82 Altered mental status, unspecified (principal); I49.3 Ventricular premature depolarization | CPT/HCPCS: 93010 ==

== ENCOUNTER → 2023-06-10 21:21 | Outpatient (BNV) | payer MEDICARE, SELFPAY | PROVIDERS: Admitting Provider Physician Assistant; Emergency Provider Student in an Organized Health Care Education/Training Program; Visit Provider Physician Assistant | DX: R62.7 Adult failure to thrive (principal); E86.0 Dehydration; E87.0 Hyperosmolality and hypernatremia; R41.82 Altered mental status, unspecified | CPT/HCPCS: 99223; 99232; 99233; 99239; 99499 ==

== ENCOUNTER → 2023-06-10 21:21 | Outpatient (BNV) | payer MEDICARE, OTHER, SELFPAY | PROVIDERS: Admitting Provider Physician Assistant; Emergency Provider Student in an Organized Health Care Education/Training Program; PCP Internal Medicine; Visit Provider Psychiatry & Neurology Neurology | DX: R62.7 Adult failure to thrive (principal); E86.0 Dehydration; E87.0 Hyperosmolality and hypernatremia; R41.82 Altered mental status, unspecified | CPT/HCPCS: 99222; 99232 ==